=== PATIENT | male | born 1955 | race Caucasian/White ===

== ENCOUNTER 2019-10-17 07:08 | Outpatient (CLI) | payer MEDICAID, SELFPAY ==
[2019-10-17 07:50] VITALS: BMI 35.2
--- NOTE | 2019-10-17 07:51 | NMCV_ITS ---
NM james perf SPECT r/s* [id number] Michael Gutierrez Age: 64 Gender: M : 1955 Exam Date: 10/17/2019 08:31 Ordering Phys: Radha Posey LINE LEAD Technologist: JOSUE Harden Exam Location: [facility] Indications: SHORTNESS OF BREATH STRESS TEST Please see separate stress test report in [facility] for full findings IMAGE PROTOCOL Rest/Stress 1 Lexiscan Day Radiopharmaceutical Dose (mCi) Administration Site Administered by Rest: Tc-99m 10.4 IV JOSUE Harden Sestamibi Stress:Tc-99m 32.2 IV JOSUE Olson Sestamibi Rest: 17-Oct-2019 60 Discovery 630 Stress: 17-Oct-2019 30 Discovery 630 0.4mg Lexiscan. Supine position only as patient was unable to lay prone. SPECT RESULTS Technical Quality: Excellent Raw Data Analysis: Normal Image Corrections: No attenuation or motion correction applied Summed Stress Score: 7 Summed Rest Score: 8 Summed Difference Score: 0 PERFUSION FINDINGS Medium sized perfusion abnormality of mid to apical anteroseptal, mid to apical inferior and apical bautista on rest and supine stress images with slightly improved tracer uptake in septal wall. FUNCTIONAL RESULTS (calculated via Gated SPECT) Stress Image LV EF (%): 39 Stress EDV (mL):195 TID: 1.01 Stress ESV (mL):119 FUNCTIONAL FINDINGS: The left ventricle is normal in size. Transient Ischemia Dilatation of 1. There is moderately reduced left ventricular systolic function. The left ventricular ejection fraction is moderately reduced with a value of 39%. There is hypokinesis of mid to apical inferior and septal wall. Increased end-diastolic and end-systolic volumes. IMPRESSIONS 1. Medium sized perfusion abnormality of mid to apical anteroseptal, mid to apical inferior and apical bautista with slightly improved tracer uptake in septal wall. 2. This may represent old myocardial infarction/scarring or attenuation artifact in absence of prone imaging. 3. There is moderately reduced left ventricular systolic function. 4. There is hypokinesis of mid to apical inferior and septal wall. 5. No coronary ischemia based on the study. Miriam Sanders MD (Electronically Signed) Final Date: 17 Oct 2019 13:26 S
--- NOTE | 2019-10-17 07:51 | ECG_ITS ---
NAME OF STUDY: LEXISCAN SESTAMIBI STRESS TEST INDICATION: Chest Pain, PROCEDURE: At the baseline, the EKG revealed normal sinus rhythm with a nonspecific T wave changes in the high lateral leads. Nonspecific ST changes. The baseline blood pressure was 185/80 mm Hg with a heart rate of 75 beats/min. Lexiscan was infused over a period of 20 seconds. A total of 0.4 milligrams of Lexiscan was infused. The stress phase was continued for a total of 5 minutes. Heart rate at the end of the stress phase was 90 with a blood pressure 169/63. The EKG at the peak infusion revealed no significant changes. Sestamibi was injected 20 seconds after the Lexiscan infusion. Blood pressure at the end of the recovery phase was 177/77 with a heart rate of 86 per minute. CONCLUSION: 1. No significant EKG changes with the LexiScan infusion 2. No LexiScan induced chest pain or cardiac arrhythmia 3. Normal blood pressure and heart rate response 4. Sestamibi/sestamibi perfusion scan pending; see separate report. Electronically Signed On 10-17-2019 18:22:39 CDT by Naheed Rivers M.D. [email or web address]
[2019-10-17] MEDS: regadenoson 0.4 Mg/5 ml Syringe IVP (09:32)
[2019-10-17 09:35] VITALS: BP 151/63; PULSE 90
== END 2019-10-17 07:09 | disposition home or self-care (01) ==
PROVIDERS: Family Provider Internal Medicine; PCP Internal Medicine; Visit Provider Internal Medicine
DX: R06.09 Other forms of dyspnea (principal)
CPT/HCPCS: 78452; 93017; A9500; J2785

== ENCOUNTER 2020-09-05 19:34 | Emergency (ER) | payer MEDICAID, SELFPAY ==
[2020-09-05 19:44] VITALS: BP 178/128; PULSE 85; RESP 18; TEMP 36.3; O2SAT 96; BMI 33.3
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
[2020-09-05 19:50] VITALS: BP 164/98; PULSE 78; RESP 22; O2SAT 97
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
[2020-09-05 20:07] LABS: Basophils # 0.1 10^3/uL (0.0-0.1); Basophils % 0.9 %; Eosinophils # 0.1 10^3/uL (0.0-0.8); Eosinophils % 1.3 %; Hematocrit 47.7 % (42.0-52.0); Hemoglobin 15.9 g/dL (11.7-16.6); Lymphocytes # 3.5 10^3/uL (0.8-4.8); Lymphocytes % 38.2 %; Mean Corpuscular HGB Conc 33.3 g/dL (30.0-36.0); Mean Corpuscular Hemoglobin 29.5 pg (28.0-34.0); Mean Corpuscular Volume 88.5 fL (80-94); Mean Platelet Volume 9.4 fL (7.4-10.4); Monocytes # 0.8 10^3/uL (0.2-0.9); Monocytes % 8.8 %; Neutrophils # 4.61 10^3/uL (1.8-7.7); Neutrophils % 50.3 %; Nucleated Red Blood Cells % 0 %; Platelet Count 336 10^3/cmm (130-400); Red Blood Count 5.39 10^6/uL (4.1-5.3); Red Cell Distribution Width 12.3 % (12.1-15.1); White Blood Count 9.2 10^3/uL (4.0-10.0)
[2020-09-05] MEDS: iodixanol 320 mg/mL 100mL Btl IV (20:35)
[2020-09-05 20:54] LABS: Alanine Aminotransferase 19 U/L (0-41); Albumin Level 4.6 g/dL (3.5-5.2); Alkaline Phosphatase 86 IU/L (40-130); Aspartate Amino Transferase 14 U/L (0-40); Blood Urea Nitrogen 19 mg/dL (8-23); Calcium 9.3 mg/dL (8.5-10.5); Carbon Dioxide 24 mmol/L (22-29); Chloride 98 mmol/L (98-107); Globulin 3.1 g/dL (1.3-4.6); Glucose 409 mg/dL (65-115); Osmolality Calculated 302 mOsm/kg (285-295); Sodium 136 mmol/L (136-145); Total Bilirubin 0.4 mg/dL (0.15-1.2); Total Protein 7.7 g/dL (6.6-8.7)
[2020-09-05 20:55] LABS: Anion Gap 18.1 (5-19); Potassium 4.1 mmol/L (3.5-5.1)
[2020-09-05] MEDS: sodium chloride 0.9% 1,000 ML 999 ML IV (21:06)
[2020-09-05 21:07] VITALS: RESP 20; O2SAT 100
[2020-09-05] MEDS: ondansetron 2 mg/ML SDV 2 mL 4 MG IVP (21:07)
[2020-09-05] MEDS: morphine 4 mg/mL SDV 1 mL IVP (21:07)
[2020-09-05] MEDS: tetanus-dipt-pertussis 0.5 mL SDV IM (21:08)
[2020-09-05 21:45] VITALS: BP 150/65; PULSE 86; RESP 18; O2SAT 96
[2020-09-05 21:55] LABS: INR 0.96 (0.8-1.2)
== END 2020-09-05 21:47 | disposition home or self-care (01) ==
PROVIDERS: Emergency Provider Emergency Medicine; PCP Internal Medicine
DX: S20.212A Contusion of left front wall of thorax, initial encounter (principal); S40.812A Abrasion of left upper arm, initial encounter; Z79.82 Long term (current) use of aspirin; Z79.4 Long term (current) use of insulin; V03.90XA Pedestrian on foot injured in collision with car, pick-up truck or van, unspecified whether traffic or nontraffic accident, initial encounter; Z23 Encounter for immunization
CPT/HCPCS: 36415; 70450; 71045; 71260; 72125; 73030; 73590; 74177; 80053; 85025; 85610; 90471; 90715; 96374; 96375; 99285; J2270; J2405; J7030; Q9967

== ENCOUNTER 2020-11-08 10:37 | Emergency (ER) | payer MEDICAID, SELFPAY ==
[2020-11-08 11:01] VITALS: BP 150/67; PULSE 82; RESP 15; TEMP 36.8; O2SAT 96; BMI 34.9
--- NOTE | 2020-11-08 11:23 | XR_ITS ---
WS: [id number] Exam: XR shunt series Date/Time of Exam: 11/08/2020 11:28 AM Reason For Exam: brain tumor s/p shunt, persistent vomiting A right-sided CSF shunt catheter is in place. There was no sign of discontinuity or kinking of the ca theter. The catheter courses along the right neck, chest and abdomen and ends in the upper pelvis. Im ages of the chest abdomen pelvis demonstrate no acute finding. XR/XR shunt series IMPRESSION: 1. Intact right sided CSF shunt catheter. No complications noted.
--- NOTE | 2020-11-08 11:24 | ECG_ITS ---
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 Measurements Intervals Rentz Rate: 86 P: 45 NE: 186 QRS: -2 QRSD: 120 T: 115 QT: 384 QTc: 460 Interpretive Statements SINUS RHYTHM POSSIBLE LATERAL MYOCARDIAL INFARCTION , OF INDETERMINATE AGE [30 ms Q WAVE IN I/aVL/V5/V6] Compared to ECG 12/13/2018 21:33:41 Myocardial infarct finding now present First degree AV block no longer present T-wave abnormality no longer present Electronically Signed On 11-08-2020 15:40:52 CDT by Miriam Sanders M.D. [email or web address] STUDIOSkettering health – [id number]
--- NOTE | 2020-11-08 11:25 | CT_ITS ---
WS: [id number] CT HEAD NONCONTRAST HISTORY: Brain tumor, persistent vomiting, dizziness. TECHNIQUE: Contiguous axial imaging performed through the brain in 2.5 mm imaging. Bone and soft tiss ue windows. Sagittal and coronal reformats reviewed. All CT scans at [facility] use at le ast one of these dose optimization techniques: automated exposure control; mA and/or kV adjustment pe r patient size (includes targeted exams where dose is matched to clinical indication); or iterative r econstruction. DLP: 1116.43 mGy.cm COMPARISON: 09/05/2020 No acute intracranial hemorrhage, midline shift or mass effect. RIGHT parietal STOCK TRADER shunt catheter terminates beyond the LEFT lateral ventricle. Similar position as th e prior examination. Size of the ventricles remains stable. No progression of ventriculomegaly. No progression of atrophy or ischemic disease. Paranasal sinuses: As visualized are clear. Mastoid air cells: Well pneumatized. Calvarium and scalp: LEFT parietal thang hole. No fractures. CT/CT head wo con* [id number] IMPRESSION: 1. No acute intracranial hemorrhage or edema. 2. STOCK TRADER shunt catheter is unchanged in position. 3. No ventriculomegaly.
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
[2020-11-08 11:50] VITALS: BP 149/66; PULSE 88; RESP 18; O2SAT 98
[2020-11-08 11:54] LABS: Add Urine Microscopic? NO; Charge for UA Resulting for Rev
[2020-11-08 11:55] LABS: Basophils % 0.4 %; Eosinophils # 0.1 10^3/uL (0.0-0.8); Eosinophils % 0.6 %; Hemoglobin 13.9 g/dL (11.7-16.6); Lymphocytes # 1.7 10^3/uL (0.8-4.8); Mean Corpuscular HGB Conc 33.9 g/dL (30.0-36.0); Mean Corpuscular Volume 85.6 fL (80-94); Mean Platelet Volume 9.5 fL (7.4-10.4); Monocytes # 0.7 10^3/uL (0.2-0.9); Monocytes % 7.7 %; Neutrophils # 6.44 10^3/uL (1.8-7.7); Nucleated Red Blood Cells % 0 %; Platelet Count 278 10^3/cmm (130-400); Red Blood Count 4.79 10^6/uL (4.1-5.3); Red Cell Distribution Width 11.9 % (12.1-15.1)
[2020-11-08 12:05] LABS: Bilirubin Urine Neg (Negative); Blood Urine Neg (Negative); Glucose Urine UA 4+ (Normal); Ketones Urine 1+ (Negative); Leukocyte Esterase Urine Negative (Negative); Nitrate Urine Negative (Negative); Protein Urine Neg (Negative); Specific Gravity, Urine 1.015 (1.005-1.030); Urine Appearance Clear (CLEAR); Urine Color Yellow (Yellow); Urobilinogen Urine 1 mg/dL (Negative); pH Urine 5 (5-7)
[2020-11-08 12:16] LABS: Lactate (Lactic Acid level) 1.2 mmol/L (0.5-2.2)
[2020-11-08 12:20] LABS: Troponin(5th) Baseline 21 ng/L (0-15)
[2020-11-08 13:05] VITALS: BP 132/50; PULSE 83; RESP 22; O2SAT 97
--- NOTE | 2020-11-08 13:24 | ECG_ITS ---
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 Measurements Intervals [place] Rate: 77 P: 51 MI: 197 QRS: 9 QRSD: 118 T: 84 QT: 379 QTc: 431 Interpretive Statements SINUS RHYTHM MODERATE INTRAVENTRICULAR CONDUCTION DELAY [110+ ms QRS DURATION] NONSPECIFIC ST & T-WAVE ABNORMALITY Compared to ECG 11/08/2020 11:36:30 Intraventricular conduction delay now present T-wave abnormality now present Myocardial infarct finding no longer present Electronically Signed On 11-08-2020 18:32:52 CDT by Miriam Sanders M.D. [id number]
[2020-11-08 13:51] LABS: NT Pro B Type Natriuretic Pept 215 pg/mL (0-125); Procalcitonin 0.05 ng/mL (0-0.5)
[2020-11-08 14:00] VITALS: BP 162/77; PULSE 82; RESP 18; O2SAT 98
[2020-11-08 14:02] LABS: Alanine Aminotransferase 13 U/L (0-41); Albumin Level 3.5 g/dL (3.5-5.2); Alkaline Phosphatase 86 IU/L (40-130); Anion Gap 15.2 (5-19); Aspartate Amino Transferase 10 U/L (0-40); Blood Urea Nitrogen 17 mg/dL (8-23); C Reactive Protein 25.8 mg/L (0.0-4.9); Calcium 8.4 mg/dL (8.5-10.5); Carbon Dioxide 23 mmol/L (22-29); Chloride 99 mmol/L (98-107); Creatinine Clr Calc Pharmacy 148.7893; Glomerular Filtration Rate 113.5 mL/min (90-130); Glucose 287 mg/dL (65-115); Lipase 33 U/L (13-60); Magnesium 1.7 mg/dL (1.7-2.3); Osmolality Calculated 288 mOsm/kg (285-295); Potassium 4.2 mmol/L (3.5-5.1); Sodium 133 mmol/L (136-145); Total Bilirubin 0.3 mg/dL (0.15-1.2); Total Protein 6.5 g/dL (6.6-8.7)
[2020-11-08 14:11] LABS: Troponin 5 2HR 21.81 ng/L (0-15); Troponin 5 2HR Delta 0.81 ABS# (0-10)
[2020-11-08 14:33] VITALS: BP 162/77; PULSE 82; RESP 18; O2SAT 98
== END 2020-11-08 14:34 | disposition home or self-care (01) ==
PROVIDERS: Emergency Provider Family Medicine; PCP Internal Medicine
DX: R11.11 Vomiting without nausea (principal); R07.9 Chest pain, unspecified; Z79.82 Long term (current) use of aspirin; Z79.4 Long term (current) use of insulin
CPT/HCPCS: 36415; 70250; 70450; 71046; 72040; 74019; 80053; 81003; 83605; 83690; 83735; 83880; 84145; 84484; 85025; 86140; 93005; 99284

== ENCOUNTER 2021-06-17 09:52 | Outpatient (CLI) | payer MEDICARE, MEDICAID, SELFPAY ==
--- NOTE | 2021-06-17 09:58 | US_ITS ---
WS: [id number] TESTICULAR ULTRASOUND HISTORY: L TESTICULAR PAIN/L EPIDIDYMITIS COMPARISON: None available. TECHNIQUE: Real-time and color Doppler imaging or utilized to perform a testicular ultrasound. Right testicle: 5.6 cm x 3.9 cm x 2.7 cm. Normal size and echogenicity. No mass or torsion. Normal color Doppler is present throughout. Systolic and diastolic velocities are both present. No significant hydrocele. Right epididymis: Normal epididymis with no increased vascularity. Left testicle: 5.5 cm x 3.4 cm x 2.5 cm. Normal size and echogenicity. No mass or torsion. Normal color Doppler is present throughout. Systolic and diastolic velocities are both present. No significant hydrocele. Left epididymis: Markedly thickened edematous heterogeneous LEFT epididymis. This corresponds to the palpable abnormality. Mildly prominent LEFT varicocele. No significant varicocele at this time. US/US scrotum [id number] IMPRESSION: 1. No testicular mass or torsion. 2. Mild acute LEFT epididymitis.
== END 2021-06-17 09:53 | disposition home or self-care (01) ==
LOC: RAD 09:56
PROVIDERS: PCP Internal Medicine; Visit Provider Nurse Practitioner Family
DX: N50.812 Left testicular pain (principal); N45.1 Epididymitis
CPT/HCPCS: 76870

== ENCOUNTER 2021-06-22 16:47 | Emergency (ER) | payer MEDICARE, MEDICAID, SELFPAY ==
--- NOTE | 2021-06-22 16:58 | USR_ITS ---
PROCEDURE INFORMATION: Exam: US Scrotum Exam date and time: 06/22/2021 4:58 PM Age: 66 years old Clinical indication: Swelling, testicles or scrotum; Scrotum pain; Additional info: L testicle TECHNIQUE: Imaging protocol: Real-time ultrasound of the scrotum and contents with color Doppler and image documentation. COMPARISON: US scrotum [id number] 06/17/2021 10:07 AM FINDINGS: Right testicle: Normal. No mass. No torsion. Normal vascular flow. Left testicle: Normal. No mass. No torsion. Normal vascular flow. There is an isoechoic to hypoechoic lesion inferior to the left testicle measuring 1.7 x 2.0 cm. No definite internal vascularity is seen. There is posterior acoustic shadowing. Epididymides: There is a 7 mm x 4 mm left epididymal head cyst. Scrotum: Left scrotal wall is thickened and hypervascular in relation to the right. There is a heterogeneous, predominantly hypoechoic lesion within the scrotal wall measuring 2.9 x 1.5 x 1.4 cm with some internal vascularity. US/US scrotum [id number] IMPRESSION: 1. There is a 1.7 x 2.0 cm lesion inferior to the left testicle with posterior acoustic shadowing and no definite internal vascularity. 2. There is a 2.9 cm hypoechoic lesion within the scrotal wall with internal vascularity. 3. Left scrotal wall is thickened and hypervascular in relation to the right. This can be seen with acute idiopathic scrotal edema. Differential includes cellulitis.
[2021-06-22 17:11] VITALS: BP 164/81; PULSE 80; RESP 14; TEMP 36.3; O2SAT 96; BMI 34.7
--- NOTE | 2021-06-22 17:34 | ED_ITS ---
Documented by User: TRISTA Barone 06/22/21 20:45 HPI - Male Genitourinary General: Chief complaint: Urogenital-Male Stated complaint: LEFT TESTICLE SWOLLEN Time Seen by Provider: 06/22/21 17:25 Source: patient Mode of arrival: ambulatory Limitations: no limitations History of Present Illness: HPI Narrative: Patient is a 66-year-old male here for evaluation of left testicular pain, swelling, redness. Patient states he initially began having symptoms about 3 weeks ago. He states he has been on cephalexin antibiotics for 3 weeks and also received IM antibiotics but symptoms continue to worsen. Patient had a US scrotum on . Results are as follows: US/US scrotum 23703 IMPRESSION: 1. No testicular mass or torsion. 2. Mild acute LEFT epididymitis. Patient states since that ultrasound his left testicle has increased in size and states it now looks like a baseball . He is having significant discomfort with ambulation/walking. Patient states he is not sexually active and has not been in over 14 years. Denies dysuria or trouble urinating. Patient is a diabetic. MD Complaint: testicle pain and testicle swelling Onset (ago): day(s) Duration: constant Location: left testicle Severity scale (1-10): 10 Relieving factors: none Exacerbating factors: palpation and movement Associated symptoms: Reports no associated symptoms and nausea; Deny vomiting Related Data: Sexually active: No Review of Systems Const: Denies: fever(s), chills, body aches, fatigue or malaise Card: Denies: chest pain Resp: Denies: dyspnea GI: Reports: nausea; Denies: abdominal pain, vomiting or diarrhea : Reports: testicular pain, testicular mass and scrotal swelling; Denies: flank pain, difficulty urinating, urinary frequency, urinary urgency, genital lesions or penile discharge Musc: Denies: neck pain or back pain Skin/Breast: Denies: rash Physical Exam Const: COMMON NORMALS: patient oriented x3, no limitations and alert GENERAL APPEARANCE: cooperative NUTRITIONAL APPEARANCE: overweight ORIENTATION/CONSCIOUSNESS: Yes awake, Yes oriented to person, Yes oriented to place and Yes oriented to time HENMT: COMMON NORMALS: normocephalic and atraumatic HEAD & SCALP: normocephalic and atraumatic Resp: COMMON NORMALS: normal respiratory effort and clear to auscultation bilaterally AUSCULTATION: clear to auscultation bilaterally Cardio: COMMON NORMALS: regular rate and regular rhythm RATE: regular rate RHYTHM: regular rhythm : PENIS: normal penis MEATUS: meatus normal SCROTUM: Yes testes descended bilaterally and Yes scrotal swelling (see below) Scrotal swelling laterality: left TESTES: Yes testicular lie normal OTHER: pt has significant swelling, erythema, warmth to L scrotum; there appears to be a fluctuant area to L interior scrotal wall that is concerning for abscess Neuro: COMMON NORMALS: patient oriented x3 SENSORIUM/ORIENTATION: Yes alert, Yes oriented to person, Yes oriented to place and Yes oriented to time Procedures Abscess I/D Site: scrotum Side (if applicable): left Local Anesthetic: lidocaine 1% and with epi Amount of anesthesia used (mL): 6.0 Technique: incised with #11 blade Amount of fluid expressed (mL): 8 Irrigation: No Packing used?: plain Course Consultations: Consultation #1: Dr. Valerio-agrees with plan to drain abscess, switch abx, and will follow up in office Vital Signs: Vital signs: Vital Signs Temperature 97.4 F L 06/22/21 17:11 Pulse Rate 80 06/22/21 17:11 Respiratory Rate 14 06/22/21 17:11 Blood Pressure 164/81 06/22/21 17:11 Pulse Oximetry 96 06/22/21 17:11 MDM - Male MDM Narrative: Medical decision making narrative: I spoke with radiologist in regards to US findings. She does not believe the lesion represents an abscess however clinically this is a scrotal wall abscess. Dr. Morrissey also evaluated patient and agrees. We spoke to Dr. Valerio who agreed with plan for incision and drainage, packing, and will follow up in office. Abscess was drained and pa cked with a large amount of purulent material expressed. Culture obtained. Will place on Levaquin and Doxycycline. Patient is a diabetic. Sugars today were approximately 350. He states he has not been taking his insulin as he is having some issues with pharmacy filling it (patient refuses to take the insulin pens and wants a vial however pharmacy is stating his insurance will not cover it). I will rewrite patient prescriptions for his insulin that he can try to fill at [facility] pharmacy in hopes that maybe they can fill. Patient is not tachycardic or febrile. He has a normal white count. Chemistry showing hyponatremia but this was thought to be pseudohyponatremia secondary to his hyperglycemia. Will place information with case management to get him set up with Dr. Valerio for follow-up. Lab Data: Labs: Lab Results 06/22/21 06/22/21 06/22/21 18:25 18:34 18:34 WBC 9.5 10^3/uL 10^3/ uL (4.0-10.0) RBC 4.77 10^6/uL 10^6 /uL (4.1-5.3) Hgb 13.6 g/dL g/dL (11.7-16.6) Hct 40.5 % L % (42.0-52.0) MCV 84.9 fl fl (80-94) MCH 28.5 pg pg (28.0-34.0) MCHC 33.6 g/dL g/dL (30.0-36.0) RDW 12.3 % % (12.1-15.1) Plt Count 327 10^3/cmm 10^3 /cmm (130-400) MPV 9.1 fL fL (7.4-10.4) Neut % (Auto) 60.3 % % Lymph % (Auto) 26.8 % % [place] % (Auto) 10.6 % % Eos % (Auto) 1.5 % % Baso % (Auto) 0.5 % % Neut # (Auto) 5.70 10^3/uL 10^3 /uL (1.8-7.7) Lymph # (Auto) 2.5 10^3/uL 10^3/ uL (0.8-4.8) [place] # (Auto) 1.0 10^3/uL H 10^ 3/uL (0.2-0.9) Eos # (Auto) 0.1 10^3/uL 10^3/ uL (0.0-0.8) Baso # (Auto) 0.1 10^3/uL 10^3/ uL (0.0-0.1) Nucleated RBC % (a uto) 0 % % Nucleated RBCs # 0.0 /100WBC /100W BC Sodium 120 mmol/L L mmol /L (136-145) Potassium 4.5 mmol/L mmol/L (3.5-5.1) Chloride 87 mmol/L L mmol/ L (98-107) Carbon Dioxide 17 mmol/L L mmol/ L (22-29) Anion Gap 20.5 H (5-19) BUN 17 mg/dL mg/dL (8-23) Creatinine 0.8 mg/dL mg/dL (0.7-1.2) GFR Calculation 97.0 mL/min mL/mi n (90-130) Glucose 340 mg/dL H mg/dL (65-115) Calculated Osmolal ity 265 mOsm/kg L mOs m/kg (285-295) Calcium 9.4 mg/dL mg/dL (8.5-10.5) Total Bilirubin 0.2 mg/dL mg/dL (0.15-1.2) AST 16 U/L U/L (0-40) ALT 16 U/L U/L (0-41) Alkaline Phosphata se 85 IU/L IU/L (40-130) C-Reactive Protein 48.2 mg/L H mg/L (0.0-4.9) Total Protein 7.1 g/dL g/dL (6.6-8.7) Albumin 3.8 g/dL g/dL (3.5-5.2) Globulin 3.3 g/dL g/dL (1.3-4.6) Urine Color Yellow (Yellow) Urine Appearance Clear (CLEAR) Urine pH 5 (5-7) Ur Specific Gravit y 1.010 (1.005-1.030) Urine Protein Neg (Negative) Urine Glucose (UA) 4+ H (Normal) Urine Ketones 1+ H (Negative) Urine Blood Neg (Negative) Urine Nitrate Negative (Negative) Urine Bilirubin Neg (Negative) Urine Urobilinogen Norm mg/dL mg/dL (Negative) Ur Leukocyte Carmita ase Negative (Negative) Imaging Data: US scrotum: Radiologist's impression: [address] [id number] ReportSigned with Addenda Patient: Bhupendra Gutierrez #: [id number]: 6Acct#:[id number]/Sex: 66 / MADM Date: 06/22/21Loc: ERRoom/Bed:Attending Dr: Ordering Provider/Ordering MD: Angy Vila MD Date of Service: 06/22/21 Procedure(s): US scrotum [id number] Accession Number(s): [id number] Report Number: [id number] ADDENDUM US/US scrotum [id number] Findings were discussed with the patient's provider at the time of this addendum. Addendum Dictated By: Emani Myers MDAddendum Signed By: Emani Myers MDSigned Date/Time:06/22/21 1900Addendum Cosigned By: PROCEDURE INFORMATION: Exam: US Scrotum Exam date and time: 06/22/2021 4:58 PM Age: 66 years old Clinical indication: Swelling, testicles or scrotum; Scrotum pain; Additional info: L testicle TECHNIQUE: Imaging protocol: Real-time ultrasound of the scrotum and contents with color Doppler and image documentation. COMPARISON: US scrotum [id number] 06/17/2021 10:07 AM FINDINGS: Right testicle: Normal. No mass. No torsion. Normal vascular flow. Left testicle: Normal. No mass. No torsion. Normal vascular flow. There is an isoechoic to hypoechoic lesion inferior to the left testicle measuring 1.7 x 2.0 cm. No definite internal vascularity is seen. There is posterior acoustic shadowing. Epididymides: There is a 7 mm x 4 mm left epididymal head cyst. Scrotum: Left scrotal wall is thickened and hypervascular in relation to the right. There is a heterogeneous, predominantly hypoechoic lesion within the scrotal wall measuring 2.9 x 1.5 x 1.4 cm with some internal vascularity. US/US scrotum [id number] IMPRESSION: 1. There is a 1.7 x 2.0 cm lesion inferior to the left testicle with posterior acoustic shadowing and no definite internal vascularity. 2. There is a 2.9 cm hypoechoic lesion within the scrotal wall with internal vascularity. 3. Left scrotal wall is thickened and hypervascular in relation to the right. This can be seen with acute idiopathic scrotal edema. Differential includes cellulitis. Dictated By:Emani Myers MDSigned By:Emani Myers MDSigned Date/Time:06/22/21 1843DD/ 1658 Discharge Plan Discharge Patient Disposition: Home Clinical Impression: Abscess of scrotal wall Condition: Stable Prescriptions: New hydrocodone-acetaminophen 5-325 mg tablet 1 tab PO Q4H PRN (Reason: pain) Qty: 20 RF: 0 doxycycline monohydrate 100 mg capsule 100 mg PO Q12H 10 Days Qty: 20 RF: 0 levofloxacin 500 mg tablet 500 mg PO DAILY 10 Days Qty: 7 RF: 0 Lantus U-100 Insulin 100 unit/mL solution 50 unit SUBCUT BID Qty: 10 RF: 0 Humalog U-100 Insulin 100 unit/mL cartridge 15 unit SUBCUT TID Qty: 3 RF: 0 No Action multivitamin Tablet 1 tab PO DAILY RF: 0 ondansetron 4 mg tablet,disintegrating 4 mg PO Q8H PRN (Reason: nausea and vomiting) Qty: 20 RF: 0 clonidine HCl 0.1 mg tablet See Rx Instructions .ROUTE .COMPLEX RF: 0 venlafaxine 75 mg capsule,extended release 24hr 75 mg PO DAILY@0600 RF: 0 Lantus U-100 Insulin 100 unit/mL solution 50 unit SUBCUT BID@0600,1700 RF: 0 pravastatin 40 mg tablet 40 mg PO DAILY@17 RF: 0 amlodipine 5 mg tablet 5 mg PO DAILY@0600 RF: 0 aspirin 81 mg tablet,delayed release (DR/EC) 81 mg PO DAILY@0600 RF: 0 levothyroxine 100 mcg tablet 100 mcg PO DAILY@0600 RF: 0 tamsulosin 0.4 mg capsule 0.4 mg PO BID@0600,1700 RF: 0 levetiracetam 750 mg tablet 750 mg PO BID@0600,1700 RF: 0 insulin lispro [Humalog U-100 Insulin] 100 unit/mL solution 6 unit SUBCUT BID@0600,1700 RF: 0 lisinopril 40 mg tablet 40 mg PO DAILY@0600 RF: 0 metformin 500 mg tablet extended release 24 hr 500 mg PO BID@0600,1700 RF: 0 aripiprazole 2 mg tablet 2 mg PO BEDTIME@1700 RF: 0 Discharge Orders: Discharge ED (Routine); Ordered 06/22/21 Ordered By: Marthamauricio Painter Referrals: Elaine Sutton MD [Primary Care Provider] - Sreekanth Valerio MD [Physician] - Coding Level of Care Code ED Cardiology Coordinator for Chg Fwd Exam Detailed Documented by User: Jose Ramon Morrissey DO 06/22/21 21:59 HPI - Male Genitourinary General: Chief complaint: Urogenital-Male Stated complaint: LEFT TESTICLE SWOLLEN Time Seen by Provider: 06/22/21 17:25 Course Vital Signs: Vital signs: Vital Signs Temperature 97.4 F L 06/22/21 17:11 Pulse Rate 80 06/22/21 17:11 Respiratory Rate 14 06/22/21 17:11 Blood Pressure 164/81 06/22/21 17:11 Pulse Oximetry 96 06/22/21 17:11 MDM - Male MDM Narrative: Medical decision making narrative: This patient was originally seen by Mrs. Painter?RADHA Qureshi. I agree with her history, evaluation, and treatment. Lab Data: Labs: Lab Results 06/22/21 06/22/21 06/22/21 18:25 18:34 18:34 WBC 9.5 10^3/uL 10^3/ uL (4.0-10.0) RBC 4.77 10^6/uL 10^6 /uL (4.1-5.3) Hgb 13.6 g/dL g/dL (11.7-16.6) Hct 40.5 % L % (42.0-52.0) MCV 84.9 fl fl (80-94) MCH 28.5 pg pg (28.0-34.0) MCHC 33.6 g/dL g/dL (30.0-36.0) RDW 12.3 % % (12.1-15.1) Plt Count 327 10^3/cmm 10^3 /cmm (130-400) MPV 9.1 fL fL (7.4-10.4) Neut % (Auto) 60.3 % % Lymph % (Auto) 26.8 % % [place] % (Auto) 10.6 % % Eos % (Auto) 1.5 % % Baso % (Auto) 0.5 % % Neut # (Auto) 5.70 10^3/uL 10^3 /uL (1.8-7.7) Lymph # (Auto) 2.5 10^3/uL 10^3/ uL (0.8-4.8) [place] # (Auto) 1.0 10^3/uL H 10^ 3/uL (0.2-0.9) Eos # (Auto) 0.1 10^3/uL 10^3/ uL (0.0-0.8) Baso # (Auto) 0.1 10^3/uL 10^3/ uL (0.0-0.1) Nucleated RBC % (a uto) 0 % % Nucleated RBCs # 0.0 /100WBC /100W BC Sodium 120 mmol/L L mmol /L (136-145) Potassium 4.5 mmol/L mmol/L (3.5-5.1) Chloride 87 mmol/L L mmol/ L (98-107) Carbon Dioxide 17 mmol/L L mmol/ L (22-29) Anion Gap 20.5 H (5-19) BUN 17 mg/dL mg/dL (8-23) Creatinine 0.8 mg/dL mg/dL (0.7-1.2) GFR Calculation 97.0 mL/min mL/mi n (90-130) Glucose 340 mg/dL H mg/dL (65-115) Calculated Osmolal ity 265 mOsm/kg L mOs m/kg (285-295) Calcium 9.4 mg/dL mg/dL (8.5-10.5) Total Bilirubin 0.2 mg/dL mg/dL (0.15-1.2) AST 16 U/L U/L (0-40) ALT 16 U/L U/L (0-41) Alkaline Phosphata se 85 IU/L IU/L (40-130) C-Reactive Protein 48.2 mg/L H mg/L (0.0-4.9) Total Protein 7.1 g/dL g/dL (6.6-8.7) Albumin 3.8 g/dL g/dL (3.5-5.2) Globulin 3.3 g/dL g/dL (1.3-4.6) Urine Color Yellow (Yellow) Urine Appearance Clear (CLEAR) Urine pH 5 (5-7) Ur Specific Gravit y 1.010 (1.005-1.030) Urine Protein Neg (Negative) Urine Glucose (UA) 4+ H (Normal) Urine Ketones 1+ H (Negative) Urine Blood Neg (Negative) Urine Nitrate Negative (Negative) Urine Bilirubin Neg (Negative) Urine Urobilinogen Norm mg/dL mg/dL (Negative) Ur Leukocyte Carmita ase Negative (Negative) Discharge Plan Discharge Patient Disposition: Home Clinical Impression: Abscess of scrotal wall Condition: Stable Prescriptions: New hydrocodone-acetaminophen 5-325 mg tablet 1 tab PO Q4H PRN (Reason: pain) Qty: 20 RF: 0 doxycycline monohydrate 100 mg capsule 100 mg PO Q12H 10 Days Qty: 20 RF: 0 levofloxacin 500 mg tablet 500 mg PO DAILY 10 Days Qty: 7 RF: 0 Lantus U-100 Insulin 100 unit/mL solution 50 unit SUBCUT BID Qty: 10 RF: 0 Humalog U-100 Insulin 100 unit/mL cartridge 15 unit SUBCUT TID Qty: 3 RF: 0 No Action multivitamin Tablet 1 tab PO DAILY RF: 0 ondansetron 4 mg tablet,disintegrating 4 mg PO Q8H PRN (Reason: nausea and vomiting) Qty: 20 RF: 0 clonidine HCl 0.1 mg tablet See Rx Instructions .ROUTE .COMPLEX RF: 0 venlafaxine 75 mg capsule,extended release 24hr 75 mg PO DAILY@0600 RF: 0 Lantus U-100 Insulin 100 unit/mL solution 50 unit SUBCUT BID@0600,1700 RF: 0 pravastatin 40 mg tablet 40 mg PO DAILY@17 RF: 0 amlodipine 5 mg tablet 5 mg PO DAILY@0600 RF: 0 aspirin 81 mg tablet,delayed release (DR/EC) 81 mg PO DAILY@0600 RF: 0 levothyroxine 100 mcg tablet 100 mcg PO DAILY@0600 RF: 0 tamsulosin 0.4 mg capsule 0.4 mg PO BID@0600,1700 RF: 0 levetiracetam 750 mg tablet 750 mg PO BID@0600,1700 RF: 0 insulin lispro [Humalog U-100 Insulin] 100 unit/mL solution 6 unit SUBCUT BID@0600,1700 RF: 0 lisinopril 40 mg tablet 40 mg PO DAILY@0600 RF: 0 metformin 500 mg tablet extended release 24 hr 500 mg PO BID@0600,1700 RF: 0 aripiprazole 2 mg tablet 2 mg PO BEDTIME@1700 RF: 0 Discharge Orders: Discharge ED (Routine); Ordered 06/22/21 Ordered By: Martha Painter Referrals: Elaine Sutton MD [Primary Care Provider] - Sreekatnh Valerio MD [Physician] - Coding Level of Care Code ED Cardiology Coordinator for Chg Fwd Exam Detailed
[2021-06-22 18:45] LABS: Basophils # 0.1 10^3/uL (0.0-0.1); Basophils % 0.5 %; Eosinophils # 0.1 10^3/uL (0.0-0.8); Eosinophils % 1.5 %; Hematocrit 40.5 % (42.0-52.0); Hemoglobin 13.6 g/dL (11.7-16.6); Lymphocytes # 2.5 10^3/uL (0.8-4.8); Lymphocytes % 26.8 %; Mean Corpuscular HGB Conc 33.6 g/dL (30.0-36.0); Mean Corpuscular Hemoglobin 28.5 pg (28.0-34.0); Mean Corpuscular Volume 84.9 fl (80-94); Mean Platelet Volume 9.1 fL (7.4-10.4); Monocytes % 10.6 %; Neutrophils % 60.3 %; Nucleated Red Blood Cells % 0 %; Platelet Count 327 10^3/cmm (130-400); Red Blood Count 4.77 10^6/uL (4.1-5.3); Red Cell Distribution Width 12.3 % (12.1-15.1); White Blood Count 9.5 10^3/uL (4.0-10.0)
[2021-06-22] MEDS: levofloxacin-dextrose 5 % 500 MG/100 ML PREMIX 100 MG IV (19:10)
[2021-06-22 19:11] LABS: Alanine Aminotransferase 16 U/L (0-41); Albumin Level 3.8 g/dL (3.5-5.2); Alkaline Phosphatase 85 IU/L (40-130); Blood Urea Nitrogen 17 mg/dL (8-23); C Reactive Protein 48.2 mg/L (0.0-4.9); Calcium 9.4 mg/dL (8.5-10.5); Carbon Dioxide 17 mmol/L (22-29); Chloride 87 mmol/L (98-107); Globulin 3.3 g/dL (1.3-4.6); Glucose 340 mg/dL (65-115); Osmolality Calculated 265 mOsm/kg (285-295); Sodium 120 mmol/L (136-145); Total Bilirubin 0.2 mg/dL (0.15-1.2); Total Protein 7.1 g/dL (6.6-8.7)
[2021-06-22 19:18] LABS: Anion Gap 20.5 (5-19); Aspartate Amino Transferase 16 U/L (0-40); Potassium 4.5 mmol/L (3.5-5.1)
[2021-06-22 19:34] LABS: Add Urine Microscopic? NO; Charge for UA Resulting for Rev
[2021-06-22 19:45] LABS: Urine Appearance Clear (CLEAR); Urine Color Yellow (Yellow); pH Urine 5 (5-7)
[2021-06-22 19:46] LABS: Bilirubin Urine Neg (Negative); Blood Urine Neg (Negative); Glucose Urine UA 4+ (Normal); Ketones Urine 1+ (Negative); Leukocyte Esterase Urine Negative (Negative); Nitrate Urine Negative (Negative); Protein Urine Neg (Negative); Urobilinogen Urine Norm (Negative)
[2021-06-22] MEDS: doxycycline 100 mg Tablet PO (20:19)
[2021-06-22] MEDS: morphine 4 mg/mL SDV 1 mL IVP (20:23)
[2021-06-22] MEDS: ondansetron 2 mg/ML SDV 2 mL 4 MG IVP (20:24)
[2021-06-22] MEDS: HYDROcodone-acetaminophen 5-325 mg Tablet 2 TAB PO (20:45)
--- NOTE | 2021-06-23 15:57 | DCPLANNER ---
funeral location manager had message to schedule a followup appointment for patient with Dr. Valerio. funeral location manager emailed patients information to Clinton Powers and Jannet at the office of Dr. Valerio. Patients information will be printed and reviewed. Clinic will call patient with appointment information.
--- NOTE | 2021-06-26 07:18 | DCPLANNER ---
Addendum entered by Althea Low 07/12/21 15:52: Patient had a follow up appointment scheduled with Dr. Valerio 06.26.21 - patient did attend appointment. Original Note: Patient has a follow up appointment scheduled for Saturday, June 26, 2021 at 2:[address] Valerio. Clinic will call patient with appointment information.
== END 2021-06-22 20:50 | disposition home or self-care (01) ==
PROVIDERS: Emergency Provider Physician Assistant; PCP Internal Medicine
DX: N49.2 Inflammatory disorders of scrotum (principal); E11.65 Type 2 diabetes mellitus with hyperglycemia; Z79.4 Long term (current) use of insulin; Z91.14 Patient's other noncompliance with medication regimen
CPT/HCPCS: 55100; 76870; 80053; 81003; 85025; 86140; 87070; 87075; 87205; 96365; 96375; 99283; J1956; J2270; J2405

== ENCOUNTER → 2021-06-26 13:10 | Outpatient (BNVA) | payer MEDICARE, MEDICAID, SELFPAY | PROVIDERS: PCP Internal Medicine; Visit Provider Urology | DX: N49.2 Inflammatory disorders of scrotum (principal); Z86.011 Personal history of benign neoplasm of the brain; Z95.5 Presence of coronary angioplasty implant and graft | CPT/HCPCS: 81003 ==

== ENCOUNTER → 2021-07-22 16:08 | Outpatient (BNVA) | payer MEDICARE, MEDICAID, SELFPAY | PROVIDERS: PCP Internal Medicine; Visit Provider Urology | DX: N49.2 Inflammatory disorders of scrotum (principal); R35.89 Other polyuria; E11.65 Type 2 diabetes mellitus with hyperglycemia | CPT/HCPCS: 81003 ==

== ENCOUNTER 2021-09-16 14:32 | Outpatient (CLI) | payer MEDICARE, MEDICAID, SELFPAY ==
--- NOTE | 2021-09-16 14:44 | XR_ITS ---
WS: [email or web address] XR hip LT 2-3V wo/w pel* [id number] REASON FOR EXAM: PAIN IN L HIP FINDINGS: No fracture of the left hip. Mild narrowing of the inferior hip joint space. There is moderate subchondral sclerosis and cystic change in the subarticular acetabulum with margina l osteophyte formation. Degenerative change noted in the left sacroiliac joint. Greater and lesser trochanters are intact. Femoral shaft from the trochanteric region to the knee is intact. No soft tissue abnormality. 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 No acute abnormality.
--- NOTE | 2021-09-16 14:44 | XR_ITS ---
WS: [email or web address] XR femur LT min 2V* [id number] REASON FOR EXAM: PAIN IN L LEG FINDINGS: No fracture of the left femur from the hip joint to the knee. No radiopaque foreign body in the soft tissues. XR/XR femur LT min 2V* [id number] IMPRESSION: No acute abnormality.
== END 2021-09-16 14:33 | disposition home or self-care (01) ==
PROVIDERS: PCP Internal Medicine; Visit Provider Internal Medicine
DX: M79.605 Pain in left leg (principal); M16.12 Unilateral primary osteoarthritis, left hip
CPT/HCPCS: 73502; 73552

== ENCOUNTER → 2021-09-26 15:06 | Outpatient (BNVA) | payer MEDICARE, MEDICAID, SELFPAY | PROVIDERS: PCP Internal Medicine; Visit Provider Nurse Practitioner | DX: E11.65 Type 2 diabetes mellitus with hyperglycemia (principal); Z79.4 Long term (current) use of insulin; E03.8 Other specified hypothyroidism; E55.9 Vitamin D deficiency, unspecified; M54.50 Low back pain, unspecified | CPT/HCPCS: 80053; 80061; 81000; 82306; 82607; 83036; 84443; 85025 ==

== ENCOUNTER 2021-09-28 10:01 | Outpatient (CLI) | payer MEDICARE, MEDICAID, SELFPAY ==
--- NOTE | 2021-09-28 10:10 | XRR_ITS ---
PROCEDURE INFORMATION: Exam: XR Thoracic Spine Exam date and time: 09/28/2021 10:10 AM Age: 66 years old Clinical indication: Pain in thoracic spine; Additional info: M54.50 - low back pain, unspecified TECHNIQUE: Imaging protocol: XR of the thoracic spine. Views: 3 views. COMPARISON: CT chest abd pel w con* 09/05/2020 8:47 PM FINDINGS: Bones/joints: Irau-wk-vgoifhog degenerative disc disease. No listhesis. No fracture. Osteopenia. Soft tissues: Unremarkable. Other findings: Extensive lateral spurring is noted. There is extensive anterior spurring. XR/XR thoracic spine 3V* [id number] IMPRESSION: Arthritis.
--- NOTE | 2021-09-28 10:10 | XRR_ITS ---
PROCEDURE INFORMATION: Exam: XR Lumbosacral Spine Exam date and time: 09/28/2021 10:10 AM Age: 66 years old Clinical indication: Low back pain; Patient HX: Lower back pain radiating down left leg to foot; Additional info: M54.50 - low back pain, unspecified TECHNIQUE: Imaging protocol: XR of the lumbosacral spine. Views: 2 or 3 views. COMPARISON: CR XR hip LT 2-3V wo/w pel* [id number] 09/16/2021 3:14 PM FINDINGS: Bones/joints: Spurring is seen more severe to the right. Anterior spurring is seen. There is moderate degenerative disc disease and severe degenerative joint disease at L5/S1. There is no fracture. There is no listhesis. Soft tissues: Unremarkable. XR/XR lumbar spine 2-3V* [id number] IMPRESSION: Arthritic changes.
== END 2021-09-28 10:02 | disposition home or self-care (01) ==
PROVIDERS: PCP Nurse Practitioner; Visit Provider Nurse Practitioner
DX: M47.894 Other spondylosis, thoracic region (principal); M47.897 Other spondylosis, lumbosacral region; M54.50 Low back pain, unspecified; M54.6 Pain in thoracic spine
CPT/HCPCS: 72072; 72100

== ENCOUNTER → 2022-01-09 11:25 | Outpatient (BNVA) | payer MEDICARE, MEDICAID, SELFPAY | PROVIDERS: PCP Nurse Practitioner; Visit Provider Nurse Practitioner | DX: F41.8 Other specified anxiety disorders (principal); R39.11 Hesitancy of micturition; M51.36 Other intervertebral disc degeneration, lumbar region; E11.65 Type 2 diabetes mellitus with hyperglycemia; Z79.4 Long term (current) use of insulin; E03.8 Other specified hypothyroidism; I10 Essential (primary) hypertension; Z87.898 Personal history of other specified conditions | CPT/HCPCS: 80053; 80061; 83036; 84443 ==

== ENCOUNTER → 2022-04-14 08:52 | Outpatient (BNVA) | payer MEDICARE, MEDICAID, SELFPAY | PROVIDERS: PCP Nurse Practitioner; Visit Provider Nurse Practitioner | DX: E11.65 Type 2 diabetes mellitus with hyperglycemia (principal); Z79.4 Long term (current) use of insulin; Z23 Encounter for immunization; B37.9 Candidiasis, unspecified; I10 Essential (primary) hypertension; E03.8 Other specified hypothyroidism; Z87.898 Personal history of other specified conditions; R39.11 Hesitancy of micturition; M51.36 Other intervertebral disc degeneration, lumbar region; G47.00 Insomnia, unspecified; F41.8 Other specified anxiety disorders | CPT/HCPCS: 80053; 81000; 82043; 83036 ==

== ENCOUNTER → 2022-06-04 13:08 | Outpatient (BNVA) | payer MEDICARE, MEDICAID, SELFPAY | PROVIDERS: PCP Nurse Practitioner; Visit Provider Thoracic Surgery (Cardiothoracic Vascular Surgery) | DX: E11.621 Type 2 diabetes mellitus with foot ulcer (principal); L97.512 Non-pressure chronic ulcer of other part of right foot with fat layer exposed | CPT/HCPCS: 99212 ==

== ENCOUNTER → 2022-06-10 14:42 | Outpatient (BNVA) | payer MEDICARE, MEDICAID, SELFPAY | PROVIDERS: PCP Nurse Practitioner; Visit Provider Surgery | DX: I96 Gangrene, not elsewhere classified (principal); E11.621 Type 2 diabetes mellitus with foot ulcer; L97.521 Non-pressure chronic ulcer of other part of left foot limited to breakdown of skin | CPT/HCPCS: 97597; A6446 ==

== ENCOUNTER 2022-06-18 14:44 | Outpatient (CLI) | payer MEDICARE, MEDICAID, SELFPAY ==
--- NOTE | 2022-06-18 14:48 | XR_ITS ---
WS: [email or web address] Left foot, 3 views, 06/18/2022 Clinical Data: diabetic foot ulcer/rule out osteomyelitis Comparison: None. Findings: No fractures or dislocations are seen. No bone destruction or erosion is noted. The joint spaces and soft tissues are normal. No osteomyelitis is seen. There is a plantar spur and an Achilles spur. XR/XR foot LT min 3V* [id number] Impression: Negative left foot.
== END 2022-06-18 14:45 | disposition home or self-care (01) ==
PROVIDERS: PCP Nurse Practitioner; Visit Provider Thoracic Surgery (Cardiothoracic Vascular Surgery)
DX: E11.621 Type 2 diabetes mellitus with foot ulcer (principal); L97.521 Non-pressure chronic ulcer of other part of left foot limited to breakdown of skin; I96 Gangrene, not elsewhere classified
CPT/HCPCS: 11042; 73630; 97597

== ENCOUNTER → 2022-06-25 14:07 | Outpatient (BNVA) | payer MEDICARE, MEDICAID, SELFPAY | PROVIDERS: PCP Nurse Practitioner; Visit Provider Thoracic Surgery (Cardiothoracic Vascular Surgery) | DX: I96 Gangrene, not elsewhere classified (principal); E11.621 Type 2 diabetes mellitus with foot ulcer; L97.521 Non-pressure chronic ulcer of other part of left foot limited to breakdown of skin | CPT/HCPCS: 11042; 97597 ==

== ENCOUNTER → 2022-07-02 10:19 | Outpatient (BNVA) | payer MEDICARE, MEDICAID, SELFPAY | PROVIDERS: PCP Nurse Practitioner; Visit Provider Thoracic Surgery (Cardiothoracic Vascular Surgery) | DX: E11.621 Type 2 diabetes mellitus with foot ulcer (principal); L97.521 Non-pressure chronic ulcer of other part of left foot limited to breakdown of skin | CPT/HCPCS: 11042; 97597; A6250 ==

== ENCOUNTER → 2022-07-16 12:59 | Outpatient (BNVA) | payer MEDICARE, MEDICAID, SELFPAY | PROVIDERS: PCP Nurse Practitioner; Visit Provider Thoracic Surgery (Cardiothoracic Vascular Surgery) | DX: Z09 Encounter for follow-up examination after completed treatment for conditions other than malignant neoplasm (principal) | CPT/HCPCS: 99212; A6210 ==

== ENCOUNTER → 2022-07-21 11:02 | Outpatient (BNVA) | payer MEDICARE, MEDICAID, SELFPAY | PROVIDERS: PCP Nurse Practitioner; Visit Provider Thoracic Surgery (Cardiothoracic Vascular Surgery) | DX: I96 Gangrene, not elsewhere classified (principal); E11.621 Type 2 diabetes mellitus with foot ulcer; L97.512 Non-pressure chronic ulcer of other part of right foot with fat layer exposed | CPT/HCPCS: 97597; A6021 ==

== ENCOUNTER → 2022-07-24 11:16 | Outpatient (BNVA) | payer MEDICARE, MEDICAID, SELFPAY | PROVIDERS: PCP Nurse Practitioner; Visit Provider Nurse Practitioner | DX: E11.65 Type 2 diabetes mellitus with hyperglycemia (principal); Z79.4 Long term (current) use of insulin | CPT/HCPCS: 80053; 80061; 81000; 83036; 84443; 85025 ==

== ENCOUNTER → 2022-07-28 10:48 | Outpatient (BNVA) | payer MEDICARE, MEDICAID, SELFPAY | PROVIDERS: PCP Nurse Practitioner; Visit Provider Thoracic Surgery (Cardiothoracic Vascular Surgery) | DX: I96 Gangrene, not elsewhere classified (principal); E11.621 Type 2 diabetes mellitus with foot ulcer; L97.512 Non-pressure chronic ulcer of other part of right foot with fat layer exposed | CPT/HCPCS: 11042 ==

== ENCOUNTER → 2022-08-04 13:19 | Outpatient (BNVA) | payer MEDICARE, MEDICAID, SELFPAY | PROVIDERS: PCP Nurse Practitioner; Visit Provider Thoracic Surgery (Cardiothoracic Vascular Surgery) | DX: I96 Gangrene, not elsewhere classified (principal); E11.621 Type 2 diabetes mellitus with foot ulcer; L97.512 Non-pressure chronic ulcer of other part of right foot with fat layer exposed | CPT/HCPCS: 11042 ==

== ENCOUNTER → 2022-08-11 10:41 | Outpatient (BNVA) | payer MEDICARE, MEDICAID, SELFPAY | PROVIDERS: PCP Nurse Practitioner; Visit Provider Thoracic Surgery (Cardiothoracic Vascular Surgery) | DX: I96 Gangrene, not elsewhere classified (principal); E11.621 Type 2 diabetes mellitus with foot ulcer; L97.512 Non-pressure chronic ulcer of other part of right foot with fat layer exposed | CPT/HCPCS: 11042 ==

== ENCOUNTER → 2022-08-18 13:01 | Outpatient (BNVA) | payer MEDICARE, MEDICAID, SELFPAY | PROVIDERS: PCP Nurse Practitioner; Visit Provider Thoracic Surgery (Cardiothoracic Vascular Surgery) | DX: I96 Gangrene, not elsewhere classified (principal); E11.621 Type 2 diabetes mellitus with foot ulcer; L97.512 Non-pressure chronic ulcer of other part of right foot with fat layer exposed | CPT/HCPCS: 11042 ==

== ENCOUNTER → 2022-08-25 11:11 | Outpatient (BNVA) | payer MEDICARE, MEDICAID, SELFPAY | PROVIDERS: PCP Nurse Practitioner; Visit Provider Nurse Practitioner Family | DX: I96 Gangrene, not elsewhere classified (principal); E11.621 Type 2 diabetes mellitus with foot ulcer; L97.512 Non-pressure chronic ulcer of other part of right foot with fat layer exposed; L97.522 Non-pressure chronic ulcer of other part of left foot with fat layer exposed | CPT/HCPCS: 11042; 97597; A6251 ==

== ENCOUNTER 2022-09-01 12:17 | Outpatient (CLI) | payer MEDICARE, MEDICAID, SELFPAY ==
--- NOTE | 2022-09-01 12:36 | XR_ITS ---
WS: [email or web address] EXAMINATION: XR foot RT min 3V* [id number] REASON FOR EXAM: non-healing DM ulcer right lateral foot; r/o osteomyelitis COMPARISON: None available. ORDER DATE: 09/01/2022 12:38 PM TECHNIQUE: 3 views of the right foot were obtained. X-RAY FINDINGS: There are no fractures or dislocations. Lateral soft tissue swelling with some soft tissue ossificati on immediately below the skin surface adjacent to the fifth MTP joint.. Joint spaces are preserved. XR/XR foot RT min 3V* [id number] IMPRESSION: Lateral soft tissue edema extending into the fifth toe. No specific signs of os teomyelitis currently
== END 2022-09-01 12:18 | disposition home or self-care (01) ==
LOC: RAD 12:20
PROVIDERS: PCP Nurse Practitioner; Visit Provider Nurse Practitioner Family
DX: L97.509 Non-pressure chronic ulcer of other part of unspecified foot with unspecified severity (principal); E11.621 Type 2 diabetes mellitus with foot ulcer; R60.0 Localized edema
CPT/HCPCS: 73630; 97597

== ENCOUNTER → 2022-09-11 08:38 | Outpatient (BNVA) | payer MEDICARE, MEDICAID, SELFPAY | PROVIDERS: PCP Nurse Practitioner; Visit Provider Nurse Practitioner Family | DX: I96 Gangrene, not elsewhere classified (principal); E11.621 Type 2 diabetes mellitus with foot ulcer; L97.512 Non-pressure chronic ulcer of other part of right foot with fat layer exposed; Z09 Encounter for follow-up examination after completed treatment for conditions other than malignant neoplasm | CPT/HCPCS: 11042 ==

== ENCOUNTER → 2022-09-18 09:12 | Outpatient (BNVA) | payer MEDICARE, MEDICAID, SELFPAY | PROVIDERS: PCP Nurse Practitioner; Visit Provider Nurse Practitioner Family | DX: I96 Gangrene, not elsewhere classified (principal); E11.621 Type 2 diabetes mellitus with foot ulcer; L97.512 Non-pressure chronic ulcer of other part of right foot with fat layer exposed | CPT/HCPCS: 11042 ==

== ENCOUNTER 2022-09-26 06:12 | Outpatient (CLI) | payer MEDICARE, MEDICAID, SELFPAY ==
--- NOTE | 2022-09-26 06:30 | CT_ITS ---
WS: [email or web address] CT RIGHT FOOT, NONCONTRAST. 3-D IMAGING. HISTORY: Non healing wound Lat ft;R/O osteo Technique: All CT scans at [facility] use at least one of these dose optimization techniques: automated exposure control; mA and/or kV adjustment per patient size (includes targeted exams where dose is matched to clinical indication); or iterative reconstruction. DLP: 148.66 mGy.cm COMPARISON: Radiographs 09/01/2022. There is soft tissue thickening along the lateral RIGHT foot. Most significant thickening along the d istal fifth metatarsal. There is a very superficial ulcer noted lateral to the fifth metatarsal head and toe. This is superficial ulcer. There is underlying edema and soft tissue thickening. There is no destruction of the cortex identified. At this time there is no definite osteomyelitis. There is a we ll-circumscribed avulsion fracture from the proximal fifth metatarsal. There are additional small oss eous fragments throughout the foot related to aging and some of these may be sesamoids. These are all well-circumscribed. There is no acute fracture. No foreign bodies. Hammertoe deformities. CT/CT foot RT wo con* [id number] IMPRESSION: 1. There is a large amount of soft tissue edema most significant lateral to th e fifth metatarsal head and fifth toe. There is a very superficial ulceration a t this location. The ulceration is superficial but there is edema deep to the u lceration extending to the bone. No osteomyelitis at this time. 2. No foci of air within the ulceration.
== END 2022-09-26 06:13 | disposition home or self-care (01) ==
LOC: RAD 06:14
PROVIDERS: PCP Nurse Practitioner; Visit Provider Nurse Practitioner Family
DX: E11.621 Type 2 diabetes mellitus with foot ulcer (principal); L97.509 Non-pressure chronic ulcer of other part of unspecified foot with unspecified severity
CPT/HCPCS: 11042; 73700

== ENCOUNTER → 2022-09-30 09:20 | Outpatient (BNVA) | payer MEDICARE, MEDICAID, SELFPAY | PROVIDERS: PCP Nurse Practitioner; Visit Provider Nurse Practitioner Family | DX: I96 Gangrene, not elsewhere classified (principal); E11.621 Type 2 diabetes mellitus with foot ulcer; L97.512 Non-pressure chronic ulcer of other part of right foot with fat layer exposed | CPT/HCPCS: 11042 ==

== ENCOUNTER → 2022-10-07 08:30 | Outpatient (BNVA) | payer MEDICARE, MEDICAID, SELFPAY | PROVIDERS: PCP Nurse Practitioner; Visit Provider Nurse Practitioner Family | DX: E11.621 Type 2 diabetes mellitus with foot ulcer (principal); L97.512 Non-pressure chronic ulcer of other part of right foot with fat layer exposed | CPT/HCPCS: 11042 ==

== ENCOUNTER → 2022-10-14 08:30 | Outpatient (BNVA) | payer MEDICARE, MEDICAID, SELFPAY | PROVIDERS: PCP Nurse Practitioner; Visit Provider Nurse Practitioner Family | DX: E11.621 Type 2 diabetes mellitus with foot ulcer (principal); L97.512 Non-pressure chronic ulcer of other part of right foot with fat layer exposed | CPT/HCPCS: 11042; A6212 ×2 ==

== ENCOUNTER → 2022-10-16 10:26 | Outpatient (BNVA) | payer MEDICARE, MEDICAID, SELFPAY | PROVIDERS: PCP Nurse Practitioner; Visit Provider Nurse Practitioner Family | DX: E11.621 Type 2 diabetes mellitus with foot ulcer (principal); L97.512 Non-pressure chronic ulcer of other part of right foot with fat layer exposed | CPT/HCPCS: 29445; A6021; A6210; A6251 ==

== ENCOUNTER → 2022-10-21 08:09 | Outpatient (BNVA) | payer MEDICARE, MEDICAID, SELFPAY | PROVIDERS: PCP Nurse Practitioner; Visit Provider Nurse Practitioner Family | DX: I96 Gangrene, not elsewhere classified (principal); E11.621 Type 2 diabetes mellitus with foot ulcer; L97.512 Non-pressure chronic ulcer of other part of right foot with fat layer exposed; L89.892 Pressure ulcer of other site, stage 2 | CPT/HCPCS: 11042; A6021; A6206; A6250; Q4205 ==

== ENCOUNTER → 2022-10-23 09:56 | Outpatient (BNVA) | payer MEDICARE, MEDICAID, SELFPAY | PROVIDERS: PCP Nurse Practitioner; Visit Provider Nurse Practitioner Family | DX: E11.621 Type 2 diabetes mellitus with foot ulcer (principal); L97.512 Non-pressure chronic ulcer of other part of right foot with fat layer exposed; I96 Gangrene, not elsewhere classified; L97.322 Non-pressure chronic ulcer of left ankle with fat layer exposed | CPT/HCPCS: 97597; A6210; A6252 ==

== ENCOUNTER → 2022-10-28 08:06 | Outpatient (BNVA) | payer MEDICARE, MEDICAID, SELFPAY | PROVIDERS: PCP Nurse Practitioner; Visit Provider Nurse Practitioner Family | DX: I96 Gangrene, not elsewhere classified (principal); E11.621 Type 2 diabetes mellitus with foot ulcer; L97.512 Non-pressure chronic ulcer of other part of right foot with fat layer exposed; L89.892 Pressure ulcer of other site, stage 2 | CPT/HCPCS: 15275; 97597; A6021; A6206; A6210; A6250; Q4205 ==

== ENCOUNTER → 2022-11-04 08:42 | Outpatient (BNVA) | payer MEDICARE, MEDICAID, SELFPAY | PROVIDERS: PCP Nurse Practitioner; Visit Provider Nurse Practitioner Family | DX: I96 Gangrene, not elsewhere classified (principal); E11.621 Type 2 diabetes mellitus with foot ulcer; L97.512 Non-pressure chronic ulcer of other part of right foot with fat layer exposed; L89.892 Pressure ulcer of other site, stage 2 | CPT/HCPCS: 15275; 97597; A6206; A6212; A6250; Q4205 ==

== ENCOUNTER → 2022-11-11 07:57 | Outpatient (BNVA) | payer MEDICARE, MEDICAID, SELFPAY | PROVIDERS: PCP Nurse Practitioner; Visit Provider Nurse Practitioner Family | DX: I96 Gangrene, not elsewhere classified (principal); E11.621 Type 2 diabetes mellitus with foot ulcer; L97.512 Non-pressure chronic ulcer of other part of right foot with fat layer exposed; Z09 Encounter for follow-up examination after completed treatment for conditions other than malignant neoplasm; E11.65 Type 2 diabetes mellitus with hyperglycemia; E03.8 Other specified hypothyroidism; Z79.4 Long term (current) use of insulin | CPT/HCPCS: 15275; 80053; 80061; 83036; 84443; A6206; A6210; A6250; A6252; Q4205 ==

== ENCOUNTER → 2022-11-18 08:14 | Outpatient (BNVA) | payer MEDICARE, MEDICAID, SELFPAY | PROVIDERS: PCP Nurse Practitioner; Visit Provider Nurse Practitioner Family | DX: I96 Gangrene, not elsewhere classified (principal); E11.621 Type 2 diabetes mellitus with foot ulcer; L97.412 Non-pressure chronic ulcer of right heel and midfoot with fat layer exposed | CPT/HCPCS: 15275; A6206; A6250; A6252; Q4205 ==

== ENCOUNTER → 2022-11-25 07:50 | Outpatient (BNVA) | payer MEDICARE, MEDICAID, SELFPAY | PROVIDERS: PCP Nurse Practitioner; Visit Provider Nurse Practitioner Family | DX: Z09 Encounter for follow-up examination after completed treatment for conditions other than malignant neoplasm (principal) | CPT/HCPCS: 99212 ==

== ENCOUNTER → 2023-01-27 16:40 | Outpatient (BNVA) | payer MEDICARE, MEDICAID, SELFPAY | PROVIDERS: PCP Nurse Practitioner; Visit Provider Nurse Practitioner | DX: E11.65 Type 2 diabetes mellitus with hyperglycemia (principal); Z79.4 Long term (current) use of insulin; I10 Essential (primary) hypertension; E03.8 Other specified hypothyroidism | CPT/HCPCS: 80053; 81000; 83036; 84443 ==

== ENCOUNTER → 2023-03-17 14:38 | Outpatient (BNVA) | payer MEDICARE, MEDICAID, SELFPAY | PROVIDERS: PCP Nurse Practitioner; Visit Provider Nurse Practitioner | DX: E03.8 Other specified hypothyroidism (principal); E11.65 Type 2 diabetes mellitus with hyperglycemia; Z79.4 Long term (current) use of insulin; I10 Essential (primary) hypertension; Z87.898 Personal history of other specified conditions; B37.9 Candidiasis, unspecified; M51.36 Other intervertebral disc degeneration, lumbar region; R39.11 Hesitancy of micturition; F41.8 Other specified anxiety disorders | CPT/HCPCS: 80053; 83036; 84443; 85025 ==

== ENCOUNTER → 2023-06-17 16:20 | Outpatient (BNVA) | payer MEDICARE, MEDICAID, SELFPAY | PROVIDERS: PCP Nurse Practitioner; Visit Provider Nurse Practitioner | DX: E11.65 Type 2 diabetes mellitus with hyperglycemia (principal); Z79.4 Long term (current) use of insulin; R68.89 Other general symptoms and signs | CPT/HCPCS: 80053; 80061; 81000; 83036; 85025; 87400 ==

== ENCOUNTER → 2023-09-07 16:16 | Outpatient (BNVA) | payer MEDICARE, MEDICAID, SELFPAY | PROVIDERS: PCP Nurse Practitioner; Visit Provider Nurse Practitioner | DX: E11.9 Type 2 diabetes mellitus without complications (principal) | CPT/HCPCS: 80053; 83036 ==

== ENCOUNTER 2023-11-03 09:40 | Outpatient (CLI) | payer MEDICARE, MEDICAID, SELFPAY ==
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
== END 2023-11-03 09:41 | disposition home or self-care (01) ==
LOC: RAD 09:43
PROVIDERS: PCP Nurse Practitioner; Visit Provider Thoracic Surgery (Cardiothoracic Vascular Surgery)
DX: E11.621 Type 2 diabetes mellitus with foot ulcer (principal); L97.519 Non-pressure chronic ulcer of other part of right foot with unspecified severity; M20.11 Hallux valgus (acquired), right foot; M19.071 Primary osteoarthritis, right ankle and foot; M77.31 Calcaneal spur, right foot
CPT/HCPCS: 73620; 97597; 99213; A6210

== ENCOUNTER → 2023-11-10 08:57 | Outpatient (BNVA) | payer MEDICARE, MEDICAID, SELFPAY | PROVIDERS: PCP Nurse Practitioner; Visit Provider Thoracic Surgery (Cardiothoracic Vascular Surgery) | DX: E11.621 Type 2 diabetes mellitus with foot ulcer (principal); L97.411 Non-pressure chronic ulcer of right heel and midfoot limited to breakdown of skin | CPT/HCPCS: 97597; A6210 ==

== ENCOUNTER → 2023-11-17 08:09 | Outpatient (BNVA) | payer MEDICARE, MEDICAID, SELFPAY | PROVIDERS: PCP Nurse Practitioner; Visit Provider Thoracic Surgery (Cardiothoracic Vascular Surgery) | DX: E11.52 Type 2 diabetes mellitus with diabetic peripheral angiopathy with gangrene (principal); E11.621 Type 2 diabetes mellitus with foot ulcer; L97.411 Non-pressure chronic ulcer of right heel and midfoot limited to breakdown of skin | CPT/HCPCS: 97597; A6210 ==

== ENCOUNTER → 2023-11-23 16:34 | Outpatient (BNVA) | payer MEDICARE, MEDICAID, SELFPAY | PROVIDERS: PCP Nurse Practitioner; Visit Provider Nurse Practitioner | DX: E11.65 Type 2 diabetes mellitus with hyperglycemia (principal); Z79.4 Long term (current) use of insulin; E03.8 Other specified hypothyroidism | CPT/HCPCS: 80053; 80061; 83036; 84443 ==

== ENCOUNTER → 2023-11-24 08:22 | Outpatient (BNVA) | payer MEDICARE, MEDICAID, SELFPAY | PROVIDERS: PCP Nurse Practitioner; Visit Provider Thoracic Surgery (Cardiothoracic Vascular Surgery) | DX: E11.52 Type 2 diabetes mellitus with diabetic peripheral angiopathy with gangrene (principal); E11.621 Type 2 diabetes mellitus with foot ulcer; L97.411 Non-pressure chronic ulcer of right heel and midfoot limited to breakdown of skin | CPT/HCPCS: 97597; A6210; A6212 ==

== ENCOUNTER → 2023-12-01 08:51 | Outpatient (BNVA) | payer MEDICARE, MEDICAID, SELFPAY | PROVIDERS: PCP Nurse Practitioner; Visit Provider Thoracic Surgery (Cardiothoracic Vascular Surgery) | DX: E11.52 Type 2 diabetes mellitus with diabetic peripheral angiopathy with gangrene (principal); E11.621 Type 2 diabetes mellitus with foot ulcer; L97.411 Non-pressure chronic ulcer of right heel and midfoot limited to breakdown of skin | CPT/HCPCS: 97597 ==

== ENCOUNTER → 2023-12-08 09:46 | Outpatient (BNVA) | payer MEDICARE, MEDICAID, SELFPAY | PROVIDERS: PCP Nurse Practitioner; Visit Provider Thoracic Surgery (Cardiothoracic Vascular Surgery) | DX: E11.52 Type 2 diabetes mellitus with diabetic peripheral angiopathy with gangrene (principal); E11.621 Type 2 diabetes mellitus with foot ulcer; L97.411 Non-pressure chronic ulcer of right heel and midfoot limited to breakdown of skin | CPT/HCPCS: 97597; A6210 ==

== ENCOUNTER → 2023-12-15 08:51 | Outpatient (BNVA) | payer MEDICARE, MEDICAID, SELFPAY | PROVIDERS: PCP Nurse Practitioner; Visit Provider Thoracic Surgery (Cardiothoracic Vascular Surgery) | DX: E11.52 Type 2 diabetes mellitus with diabetic peripheral angiopathy with gangrene (principal); E11.621 Type 2 diabetes mellitus with foot ulcer; L97.411 Non-pressure chronic ulcer of right heel and midfoot limited to breakdown of skin | CPT/HCPCS: 97597; A6210 ==

== ENCOUNTER → 2023-12-22 08:55 | Outpatient (BNVA) | payer MEDICARE, MEDICAID, SELFPAY | PROVIDERS: PCP Nurse Practitioner; Visit Provider Nurse Practitioner Family | DX: E11.52 Type 2 diabetes mellitus with diabetic peripheral angiopathy with gangrene (principal); E11.621 Type 2 diabetes mellitus with foot ulcer; L97.412 Non-pressure chronic ulcer of right heel and midfoot with fat layer exposed | CPT/HCPCS: 11042 ==

== ENCOUNTER → 2024-01-05 13:52 | Outpatient (BNVA) | payer MEDICARE, MEDICAID, SELFPAY | PROVIDERS: PCP Nurse Practitioner; Visit Provider Nurse Practitioner Family | DX: E11.52 Type 2 diabetes mellitus with diabetic peripheral angiopathy with gangrene (principal); E11.621 Type 2 diabetes mellitus with foot ulcer; L97.411 Non-pressure chronic ulcer of right heel and midfoot limited to breakdown of skin | CPT/HCPCS: 97597 ==

== ENCOUNTER → 2024-01-13 07:53 | Outpatient (BNVA) | payer MEDICARE, MEDICAID, SELFPAY | PROVIDERS: PCP Nurse Practitioner; Visit Provider Thoracic Surgery (Cardiothoracic Vascular Surgery) | DX: Z09 Encounter for follow-up examination after completed treatment for conditions other than malignant neoplasm (principal); Z87.2 Personal history of diseases of the skin and subcutaneous tissue | CPT/HCPCS: 99212; A6210 ==

== ENCOUNTER → 2024-02-08 14:36 | Outpatient (BNVA) | payer MEDICARE, MEDICAID, SELFPAY | PROVIDERS: PCP Nurse Practitioner; Visit Provider Nurse Practitioner | DX: E11.65 Type 2 diabetes mellitus with hyperglycemia (principal); Z79.4 Long term (current) use of insulin; R05.9 Cough, unspecified | CPT/HCPCS: 71046; 80053; 83036; 85025 ==

== ENCOUNTER → 2024-04-04 12:57 | Outpatient (BNVA) | payer MEDICARE, MEDICAID, SELFPAY | PROVIDERS: PCP Nurse Practitioner; Visit Provider Internal Medicine Cardiovascular Disease | DX: R00.1 Bradycardia, unspecified (principal); I47.20 Ventricular tachycardia, unspecified; I47.10 Supraventricular tachycardia, unspecified; I49.1 Atrial premature depolarization; I49.3 Ventricular premature depolarization | CPT/HCPCS: 93242 ==

== ENCOUNTER → 2024-04-25 15:35 | Outpatient (BNVA) | payer MEDICARE, MEDICAID, SELFPAY | PROVIDERS: PCP Nurse Practitioner; Visit Provider Nurse Practitioner | DX: Z12.5 Encounter for screening for malignant neoplasm of prostate (principal); E11.9 Type 2 diabetes mellitus without complications; E03.8 Other specified hypothyroidism; I10 Essential (primary) hypertension | CPT/HCPCS: 80053; 80061; 82607; 83036; 84443; G0103 ==

== ENCOUNTER → 2024-07-04 16:28 | Outpatient (BNVA) | payer MEDICARE, MEDICAID, SELFPAY | PROVIDERS: PCP Nurse Practitioner; Visit Provider Nurse Practitioner | DX: E11.9 Type 2 diabetes mellitus without complications (principal); E03.8 Other specified hypothyroidism | CPT/HCPCS: 80053; 82607; 83036; 84443 ==

== ENCOUNTER → 2024-09-14 10:04 | Outpatient (BNVA) | payer MEDICARE, MEDICAID, SELFPAY | PROVIDERS: PCP Nurse Practitioner; Visit Provider Clinical Nurse Specialist Adult Health | DX: E11.621 Type 2 diabetes mellitus with foot ulcer (principal); L97.519 Non-pressure chronic ulcer of other part of right foot with unspecified severity | CPT/HCPCS: 85025; 85651; 86140 ==

== ENCOUNTER 2024-09-19 10:03 | Outpatient (CLI) | payer MEDICARE, MEDICAID, SELFPAY ==
--- NOTE | 2024-09-19 10:12 | XR_ITS ---
WS: [email or web address] Exam: XR foot RT min 3V* [id number] Date/Time of Exam: 09/19/2024 10:24 AM Reason For Exam: E11.621 - Type 2 diabetes mellitus with foot ulcer Prominent soft tissue ulceration along the MP joint of the fifth digit. No sign of bone destruction or fracture. Soft tissue swelling of the fifth toe. Minimal degenerative change of the IP joints and midfoot joints. No soft tissue foreign bodies. XR/XR foot RT min 3V* [id number] IMPRESSION: 1. No fracture or bone destruction identified. 2. Large soft tissue ulceration with edema along the fifth MP joint.
== END 2024-09-19 10:04 | disposition home or self-care (01) ==
LOC: RAD 10:09
PROVIDERS: PCP Nurse Practitioner; Visit Provider Thoracic Surgery (Cardiothoracic Vascular Surgery)
DX: E11.621 Type 2 diabetes mellitus with foot ulcer (principal); L97.519 Non-pressure chronic ulcer of other part of right foot with unspecified severity; R52 Pain, unspecified; E11.65 Type 2 diabetes mellitus with hyperglycemia; Z79.4 Long term (current) use of insulin; M79.89 Other specified soft tissue disorders; E11.52 Type 2 diabetes mellitus with diabetic peripheral angiopathy with gangrene; L97.512 Non-pressure chronic ulcer of other part of right foot with fat layer exposed; L97.412 Non-pressure chronic ulcer of right heel and midfoot with fat layer exposed
CPT/HCPCS: 10060; 11042; 73630; 80053; 80061; 82607; 83036; 84443; 87070; 87176; 87205

== ENCOUNTER → 2024-09-26 08:01 | Outpatient (BNVA) | payer MEDICARE, MEDICAID, SELFPAY | PROVIDERS: PCP Nurse Practitioner | DX: E11.52 Type 2 diabetes mellitus with diabetic peripheral angiopathy with gangrene (principal); E11.621 Type 2 diabetes mellitus with foot ulcer; L97.512 Non-pressure chronic ulcer of other part of right foot with fat layer exposed; L97.411 Non-pressure chronic ulcer of right heel and midfoot limited to breakdown of skin | CPT/HCPCS: 11042; A6219 ==

== ENCOUNTER → 2024-10-03 08:03 | Outpatient (BNVA) | payer MEDICARE, MEDICAID, SELFPAY | PROVIDERS: PCP Nurse Practitioner; Visit Provider Thoracic Surgery (Cardiothoracic Vascular Surgery) | DX: E11.52 Type 2 diabetes mellitus with diabetic peripheral angiopathy with gangrene (principal); E11.621 Type 2 diabetes mellitus with foot ulcer; L97.515 Non-pressure chronic ulcer of other part of right foot with muscle involvement without evidence of necrosis | CPT/HCPCS: 11042; A6210; A6248 ==

== ENCOUNTER → 2024-10-10 07:57 | Outpatient (BNVA) | payer MEDICARE, MEDICAID, SELFPAY | PROVIDERS: PCP Nurse Practitioner; Visit Provider Thoracic Surgery (Cardiothoracic Vascular Surgery) | DX: E11.52 Type 2 diabetes mellitus with diabetic peripheral angiopathy with gangrene (principal); E11.621 Type 2 diabetes mellitus with foot ulcer; L97.515 Non-pressure chronic ulcer of other part of right foot with muscle involvement without evidence of necrosis | CPT/HCPCS: 97597; A6210; A6213; A6252 ==

== ENCOUNTER → 2024-10-13 08:05 | Outpatient (BNVA) | payer MEDICARE, MEDICAID, SELFPAY | PROVIDERS: PCP Nurse Practitioner; Visit Provider Thoracic Surgery (Cardiothoracic Vascular Surgery) | DX: E11.52 Type 2 diabetes mellitus with diabetic peripheral angiopathy with gangrene (principal); E11.621 Type 2 diabetes mellitus with foot ulcer; L97.511 Non-pressure chronic ulcer of other part of right foot limited to breakdown of skin | CPT/HCPCS: 29445; A6197; A6251 ==

== ENCOUNTER → 2024-10-17 07:56 | Outpatient (BNVA) | payer MEDICARE, MEDICAID, SELFPAY | PROVIDERS: PCP Nurse Practitioner; Visit Provider Thoracic Surgery (Cardiothoracic Vascular Surgery) | DX: E11.52 Type 2 diabetes mellitus with diabetic peripheral angiopathy with gangrene (principal); E11.621 Type 2 diabetes mellitus with foot ulcer; L97.515 Non-pressure chronic ulcer of other part of right foot with muscle involvement without evidence of necrosis | CPT/HCPCS: 97597; A6197; A6252 ==

== ENCOUNTER → 2024-10-24 07:59 | Outpatient (BNVA) | payer MEDICARE, MEDICAID, SELFPAY | PROVIDERS: PCP Nurse Practitioner; Visit Provider Thoracic Surgery (Cardiothoracic Vascular Surgery) | DX: E11.52 Type 2 diabetes mellitus with diabetic peripheral angiopathy with gangrene (principal); E11.621 Type 2 diabetes mellitus with foot ulcer; L97.515 Non-pressure chronic ulcer of other part of right foot with muscle involvement without evidence of necrosis | CPT/HCPCS: 97597 ==

== ENCOUNTER → 2024-11-03 08:25 | Outpatient (BNVA) | payer MEDICARE, MEDICAID, SELFPAY | PROVIDERS: PCP Nurse Practitioner; Visit Provider Thoracic Surgery (Cardiothoracic Vascular Surgery) | DX: E11.52 Type 2 diabetes mellitus with diabetic peripheral angiopathy with gangrene (principal); E11.621 Type 2 diabetes mellitus with foot ulcer; L97.515 Non-pressure chronic ulcer of other part of right foot with muscle involvement without evidence of necrosis | CPT/HCPCS: 97597; 97605; A6237; A6250 ==

== ENCOUNTER → 2024-11-10 08:41 | Outpatient (BNVA) | payer MEDICARE, MEDICAID, SELFPAY | PROVIDERS: PCP Nurse Practitioner; Visit Provider Thoracic Surgery (Cardiothoracic Vascular Surgery) | DX: E11.52 Type 2 diabetes mellitus with diabetic peripheral angiopathy with gangrene (principal); E11.621 Type 2 diabetes mellitus with foot ulcer; L97.515 Non-pressure chronic ulcer of other part of right foot with muscle involvement without evidence of necrosis | CPT/HCPCS: 97597; A6237; A6250 ==

== ENCOUNTER → 2024-11-17 08:30 | Outpatient (BNVA) | payer MEDICARE, MEDICAID, SELFPAY | PROVIDERS: PCP Nurse Practitioner; Visit Provider Thoracic Surgery (Cardiothoracic Vascular Surgery) | DX: E11.52 Type 2 diabetes mellitus with diabetic peripheral angiopathy with gangrene (principal); E11.621 Type 2 diabetes mellitus with foot ulcer; L97.515 Non-pressure chronic ulcer of other part of right foot with muscle involvement without evidence of necrosis | CPT/HCPCS: 97597; 97605 ==

== ENCOUNTER → 2024-11-24 08:56 | Outpatient (BNVA) | payer MEDICARE, MEDICAID, SELFPAY | PROVIDERS: PCP Nurse Practitioner; Visit Provider Thoracic Surgery (Cardiothoracic Vascular Surgery) | DX: E11.52 Type 2 diabetes mellitus with diabetic peripheral angiopathy with gangrene (principal); E11.621 Type 2 diabetes mellitus with foot ulcer; L97.515 Non-pressure chronic ulcer of other part of right foot with muscle involvement without evidence of necrosis | CPT/HCPCS: 97597 ==

== ENCOUNTER 2024-12-01 09:44 | Outpatient (CLI) | payer MEDICARE, MEDICAID, SELFPAY ==
--- NOTE | 2024-12-01 09:52 | XR_ITS ---
WS: [email or web address] Right foot, 3 views, 12/01/2024 Clinical Data: R52 - Pain, unspecified Comparison: Right foot, 09/19/2024 Findings: No fractures or dislocations are seen. No bone destruction or erosion is noted. The soft tissue ulceration adjacent to the fifth MTP joint is barely visible. No foreign bodies are seen. XR/XR foot RT min 3V* [id number] Impression: 1. Decrease in soft tissue ulceration adjacent to right fifth MTP joint. 2. No evidence of osteomyelitis.
[2024-12-01 10:29] LABS: Basophils # 0.1 10^3/uL (0.0-0.1); Basophils % 0.7 %; Eosinophils # 0.2 10^3/uL (0.0-0.8); Eosinophils % 2.6 %; Hematocrit 36.1 % (37-53); Lymphocytes # 2.9 10^3/uL (0.8-4.8); Lymphocytes % 32.7 %; Mean Corpuscular HGB Conc 34.6 g/dL (30-55); Mean Corpuscular Hemoglobin 29.4 pg (27-33); Mean Corpuscular Volume 84.9 fl (82-101); Mean Platelet Volume 9.9 fL (7.4-10.4); Monocytes # 0.8 10^3/uL (0.2-0.9); Monocytes % 8.5 %; Neutrophils % 55.3 %; Nucleated Red Blood Cells % 0 %; Platelet Count 278 10^3/cmm (157-399); Red Blood Count 4.25 10^6/uL (3.85-5.65); Red Cell Distribution Width 13.9 % (12.1-15.1); White Blood Count 8.86 10^3/uL (3.29-11.43)
[2024-12-01 10:37] LABS: Erythrocyte Sedimentation Rate 38 mm/hr (0-10)
[2024-12-01 10:50] LABS: Alanine Aminotransferase 15 U/L (0-41); Albumin Level 3.5 g/dL (3.5-5.2); Alkaline Phosphatase 100 U/L (40-130); Anion Gap 13.7 (5-19); Aspartate Amino Transferase 14 U/L (0-40); Blood Urea Nitrogen 21 mg/dL (8-23); C Reactive Protein 36.6 mg/L (0.0-4.9); Calcium 8.8 mg/dL (8.5-10.5); Carbon Dioxide 24 mmol/L (22-29); Chloride 96 mmol/L (98-107); Globulin 3.5 g/dL (1.3-4.6); Glomerular Filtration Rate 112.1 mL/min (90-130); Glucose 304 mg/dL (65-115); Osmolality Calculated 282 mOsm/kg (285-295); Potassium 4.7 mmol/L (3.5-5.1); Sodium 129 mmol/L (136-145); Total Bilirubin 0.4 mg/dL (0.15-1.2)
== END 2024-12-01 09:45 | disposition home or self-care (01) ==
LOC: RAD 09:48
PROVIDERS: PCP Nurse Practitioner; Visit Provider Thoracic Surgery (Cardiothoracic Vascular Surgery)
DX: L97.512 Non-pressure chronic ulcer of other part of right foot with fat layer exposed (principal); E11.621 Type 2 diabetes mellitus with foot ulcer; L97.509 Non-pressure chronic ulcer of other part of unspecified foot with unspecified severity; R93.89 Abnormal findings on diagnostic imaging of other specified body structures; E11.52 Type 2 diabetes mellitus with diabetic peripheral angiopathy with gangrene; L97.515 Non-pressure chronic ulcer of other part of right foot with muscle involvement without evidence of necrosis
CPT/HCPCS: 11042; 36415; 73630; 80053; 85025; 85651; 86140; 87070; 87077; 87176; 87186; 87205; A6197

== ENCOUNTER → 2024-12-08 08:46 | Outpatient (BNVA) | payer MEDICARE, MEDICAID, SELFPAY | PROVIDERS: PCP Nurse Practitioner; Visit Provider Thoracic Surgery (Cardiothoracic Vascular Surgery) | DX: E11.52 Type 2 diabetes mellitus with diabetic peripheral angiopathy with gangrene (principal); E11.621 Type 2 diabetes mellitus with foot ulcer; L97.515 Non-pressure chronic ulcer of other part of right foot with muscle involvement without evidence of necrosis | CPT/HCPCS: 11042; A6197 ==

== ENCOUNTER 2024-12-13 07:37 | Outpatient (CLI) | payer MEDICARE, MEDICAID, SELFPAY ==
--- NOTE | 2024-12-13 08:00 | NM_ITS ---
WS: [email or web address] THREE-PHASE BONE SCAN HISTORY: E11.621 - Type 2 diabetes mellitus with foot ulcer COMPARISON: Radiograph RIGHT foot 12/01/2024 Patient is is injected with 25.2 mCi Tc99m HDP intravenously. Immediate angiographic phase imaging is performed over the area of concern. Static blood pool imaging also performed. Two-hour whole-body scintigrams performed in anterior and posterior projections. Additional large field of view imaging sub mitted as necessary. Angiographic and blood pool imaging is positive involving head of the fifth metatarsal and the proximal fifth phalanx. There is significant soft tissue and bone uptake. Mild soft tissue uptake and blood pool uptake also involving the distal RIGHT ankle and nearly the entire soft tissues of the RIGHT foot. On the delayed imaging there is high-grade focal uptake in the distal fifth metatarsal and the proximal fifth phalanges. Approximately half of the proximal fifth toe with increased uptake. LEFT foot is negative. Mild AC joint arthritis. Mild AC joint arthritis. No rib or spine abnormalities. Intermediate uptake in the distal RIGHT ankle. Normal uptake in the kidneys and soft tissues. NM/NM bone 3 phase [id number] IMPRESSION: 1. Cellulitis and osteomyelitis involving the fifth metatarsal head with exten martinez into the proximal fifth phalanx. At least 50% of the proximal fifth phalan x with osteomyelitis. 2. Additional cellulitis involving the RIGHT ankle and nearly the entire RIGHT foot.
== END 2024-12-13 07:38 | disposition home or self-care (01) ==
PROVIDERS: PCP Nurse Practitioner; Visit Provider Thoracic Surgery (Cardiothoracic Vascular Surgery)
DX: E11.621 Type 2 diabetes mellitus with foot ulcer (principal); L03.031 Cellulitis of right toe; M86.171 Other acute osteomyelitis, right ankle and foot; L03.115 Cellulitis of right lower limb; M19.011 Primary osteoarthritis, right shoulder; R93.7 Abnormal findings on diagnostic imaging of other parts of musculoskeletal system
CPT/HCPCS: 78315; A9561

== ENCOUNTER → 2024-12-14 07:57 | Day surgery (SDC) | payer MEDICARE, MEDICAID, SELFPAY ==
[2024-12-14 08:40] VITALS: BP 150/82; PULSE 73; RESP 18; TEMP 36.4; O2SAT 97; BMI 31.3
--- NOTE | 2024-12-14 10:00 | XR_ITS ---
WS: [id number] XR chest 1V portable [id number] REASON FOR EXAM: POST PICC INSERTION FINDINGS: Right arm PICC line placement. Tip of the catheter is in the mid SVC. Reportedly 1 cm of catheter remains for advancement. It was recommended to advance the remaining [address] the PICC line in a more optimal positioning in the distal SVC. PICC line position and advancement instructions over the phone with the radiology interventional physician at 10:03 a.m. XR/XR chest 1V portable [id number] IMPRESSION: Right arm PICC line placement as above.
[2024-12-14] MEDS: cefTRIAXone 1,000 mg SDV 1000 MG IVP (10:20)
== END ==
LOC: GILAB 07:57
PROVIDERS: PCP Nurse Practitioner; Visit Provider Thoracic Surgery (Cardiothoracic Vascular Surgery)
DX: E11.621 Type 2 diabetes mellitus with foot ulcer (principal); L97.509 Non-pressure chronic ulcer of other part of unspecified foot with unspecified severity; E11.69 Type 2 diabetes mellitus with other specified complication; M86.9 Osteomyelitis, unspecified; Z88.8 Allergy status to other drugs, medicaments and biological substances; Z88.4 Allergy status to anesthetic agent
CPT/HCPCS: 36573; 71045; 96374; J0696

== ENCOUNTER → 2024-12-15 08:10 | Outpatient (BNVA) | payer MEDICARE, MEDICAID, SELFPAY | PROVIDERS: PCP Nurse Practitioner; Visit Provider Thoracic Surgery (Cardiothoracic Vascular Surgery) | DX: E11.52 Type 2 diabetes mellitus with diabetic peripheral angiopathy with gangrene (principal); E11.621 Type 2 diabetes mellitus with foot ulcer; L97.511 Non-pressure chronic ulcer of other part of right foot limited to breakdown of skin | CPT/HCPCS: 97597 ==

== ENCOUNTER → 2024-12-21 13:02 | Outpatient (BNVA) | payer MEDICARE, MEDICAID, SELFPAY | PROVIDERS: PCP Nurse Practitioner; Visit Provider Thoracic Surgery (Cardiothoracic Vascular Surgery) | DX: E11.52 Type 2 diabetes mellitus with diabetic peripheral angiopathy with gangrene (principal); E11.621 Type 2 diabetes mellitus with foot ulcer; L97.511 Non-pressure chronic ulcer of other part of right foot limited to breakdown of skin | CPT/HCPCS: 97597; A6197 ==

== ENCOUNTER → 2024-12-23 10:02 | Outpatient (BNVA) | payer MEDICARE, MEDICAID, SELFPAY | PROVIDERS: PCP Nurse Practitioner; Referring Provider Thoracic Surgery (Cardiothoracic Vascular Surgery); Visit Provider Internal Medicine | DX: E11.621 Type 2 diabetes mellitus with foot ulcer (principal); L97.512 Non-pressure chronic ulcer of other part of right foot with fat layer exposed; E11.65 Type 2 diabetes mellitus with hyperglycemia; Z79.4 Long term (current) use of insulin; E78.2 Mixed hyperlipidemia; E11.69 Type 2 diabetes mellitus with other specified complication | CPT/HCPCS: 99204 ==

== ENCOUNTER → 2024-12-28 11:10 | Outpatient (BNVA) | payer MEDICARE, MEDICAID, SELFPAY | PROVIDERS: PCP Nurse Practitioner; Visit Provider Thoracic Surgery (Cardiothoracic Vascular Surgery) | DX: E11.52 Type 2 diabetes mellitus with diabetic peripheral angiopathy with gangrene (principal); E11.621 Type 2 diabetes mellitus with foot ulcer; L97.515 Non-pressure chronic ulcer of other part of right foot with muscle involvement without evidence of necrosis | CPT/HCPCS: 97597; A6197 ==

== ENCOUNTER → 2025-01-04 09:42 | Outpatient (BNVA) | payer MEDICARE, MEDICAID, SELFPAY | PROVIDERS: PCP Nurse Practitioner; Visit Provider Thoracic Surgery (Cardiothoracic Vascular Surgery) | DX: E11.52 Type 2 diabetes mellitus with diabetic peripheral angiopathy with gangrene (principal); E11.621 Type 2 diabetes mellitus with foot ulcer; L97.511 Non-pressure chronic ulcer of other part of right foot limited to breakdown of skin | CPT/HCPCS: 97597; A6197 ==

== ENCOUNTER 2025-01-08 12:25 | Emergency (ER) | payer MEDICARE, MEDICAID, SELFPAY ==
--- OUTSIDE RECORDS SUMMARY | 2025-01-08 12:28 | XMS_ITS | Encounter Summary ---
Author Organization [facility] Address [address] [place] [address] Care Team Providers Care Subway Operator Name Role Phone Elaine Sutton MD Primary Care Provider +1- [phone] Encounter Details Date Type Department Care Team (Late st Contact Info) Description 12/13/2020 Lab Requisition [facility] Services [address] 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 Gender Identity Not on file Sexual Orientation Not on file documented as of this encounter Plan of Treatment Not on file documented as of this encounter Procedures Procedure Name Priority Date/Time Associated Diagnosis Comments CBC WITH DIFFERENTIAL Routine 12/13/2020 3:30 AM CDT COMPREHENSIVE METABOLIC PANEL Routine 12/13/2020 3:30 AM CDT documented in this encounter Results * (ABNORMAL) CBC WITH DIFFERENTIAL (12/13/2020 3:30 AM CDT) WBC 15.0(H) 4.8 - 10.8 K/uL 12/13/2020 11:16 AM [facility] RBC 4.24(L) 4.60 - 6.20 M/uL 12/13/2020 11:16 AM [facility] HEMOGLOBIN 11.6(L) 14.0 - 18.0 g/dL 12/13/2020 11:16 AM [facility] HEMATOCRIT 36.9(L) 41.0 - 53.0 % 12/13/2020 11:16 AM [facility] MCV 87.0 84.0 - 103.0 fL 12/13/2020 11:16 AM [facility] MCH 27.4 27.0 - 34.0 pg 12/13/2020 11:16 AM [facility] MCHC 31.4 30.0 - 35.0 g/dL 12/13/2020 11:16 AM [facility] RDW 13.6 11.0 - 14.5 % 12/13/2020 11:16 AM [facility] RDW-STDEV 41.7 37.0 - 54.0 fL 12/13/2020 11:16 AM [facility] PLATELETS 434 140 - 440 K/uL 12/13/2020 11:16 AM [facility] MPV 9.8 8.9 - 12.8 fL 12/13/2020 11:16 AM [facility] NEUTROPHILS 66 42 - 75 % 12/13/2020 11:16 AM [facility] LYMPHOCYTES 27 24 - 44 % 12/13/2020 11:16 AM [facility] MONOCYTES 6 2 - 10 % 12/13/2020 11:16 AM [facility] EOSINOPHILS 1 0 - 7 % 12/13/2020 11:16 AM [facility] BASOPHILS 0 0 - 1 % 12/13/2020 11:16 AM [facility] IMMATURE GRANULOCYTES 1 0 - 2 % 12/13/2020 11:16 AM CDT [facility] NEUTROPHIL ABSOLUTE 9.87(H) 2.00 - 8.00 K/uL 12/13/2020 11:16 AM CDT [facility] LYMPHOCYTE ABSOLUTE 4.09(H) 1.20 - 4.00 K/uL 12/13/2020 11:16 AM CDT [facility] MONOCYTE ABSOLUTE 0.84(H) 0.10 - 0.60 K/uL 12/13/2020 11:16 AM CDT [facility] EOSINOPHIL ABSOLUTE 0.11 0.00 - 0.70 K/uL 12/13/2020 11:16 AM CDT [facility] BASOPHILS ABSOLUTE 0.01 0.00 - 0.20 K/uL 12/13/2020 11:16 AM CDT [facility] IMMATURE GRANULOCYTES ABSOLUTE 0.07 0.00 - 0.10 K/uL 12/13/2020 11:16 AM T [facility] Blood 12/13/2020 3:30 AM CDT 12/13/2020 10:44 AM CDT us Erlinda Alonzo NP HEMATOLOGY ORDERABLES Final Res ult [facility] [address] [place] [address] * (ABNORMAL) COMPREHENSIVE METABOLIC PANEL (12/13/2020 3:30 AM CDT) SODIUM 134(L) 136 - 145 mmol/L 12/13/2020 11:35 AM CDT [facility] POTASSIUM 4.2 3.5 - 5.1 mmol/L 12/13/2020 11:35 AM CDT [facility] CHLORIDE 99 98 - 107 mmol/L 12/13/2020 11:35 AM CDT [facility] CO2 26 22 - 29 mmol/L 12/13/2020 11:35 AM CDT [facility] CALCIUM 8.3(L) 8.8 - 10.2 mg/dL 12/13/2020 11:35 AM [facility] BUN 20 8 - 23 mg/dL 12/13/2020 11:35 AM [facility] CREATININE 0.66(L) 0.67 - 1.17 mg/dL 12/13/2020 11:35 AM [facility] GLUCOSE 53(L) 74 - 99 mg/dL 12/13/2020 11:35 AM [facility] TOTAL PROTEIN 6.1(L) 6.4 - 8.3 g/dL 12/13/2020 11:35 AM [facility] ALBUMIN 2.5(L) 3.5 - 5.2 g/dL 12/13/2020 11:35 AM [facility] BILIRUBIN TOTAL 0.3 0.2 - 1.0 mg/dL 12/13/2020 11:35 AM [facility] ALKALINE PHOSPHATASE 80 40 - 129 U/L 12/13/2020 11:35 AM [facility] AST 13 10 - 50 U/L 12/13/2020 11:35 AM [facility] ALT 36 <=50 U/L 12/13/2020 11:35 AM [facility] GFR >60 mL/min/1. 73 sq meter 12/13/2020 11:35 AM [facility] Comment: eGFR has not been validated for use in the elderly (> 70 years of age), women, patients with serious co-morbid conditions, or persons with extremes of body size or muscle mass and should also be interpreted with caution in patients with acute kidney failure, dialysis dependent patients, patients reporting exceptional dietary intake (e.g. vegetarian diet, high protein diets, creatine supplementation), and patients with severe liver disease. Based on National Kidney Disease Education Program If patient is , please refer to the GFR result. GFR, >60 mL/min/1. 73 sq meter 12/13/2020 11:35 AM [facility] ANION GAP 9 9 - 20 mmol/L 12/13/2020 11:35 AM [facility] Blood 12/13/2020 3:30 AM CDT 12/13/2020 10:44 AM CDT us Erlinda Alonzo NP CHEMISTRY ORDERABLES Final Resu lt [facility] [address] [place] [address] documented in this encounter Visit Diagnoses Not on filedocumented in this encounter Additional Health Concerns Infection Onset Date Last Indicated Resolved Time COVID-19 11/24/2020 11/24/2020 12/17/2020 1:16 AM CDT documented as of this encounter Care Teams Subway Operator Relationship Specialty Start Date End Date Elaine Sutton MD [address] [place] [address] PCP - General Internal Medicine 04/30/17 documented as of this encounter
--- OUTSIDE RECORDS SUMMARY | 2025-01-08 12:28 | XMS_ITS ---
Author Organization [facility] Address [address] [place] [address] Phone Care Team Providers Care Photographic Editor Name Role Phone Elaine Sutton MD Primary Care Provider +1- [phone] Active Problems Problem Noted Date Diagnosed Date Pneumonia due to COVID-19 virus 11/25/2020 Pleural effusion on right 11/24/2020 Severe obesity (BMI 35.0-39.9) with comorbidity 11/21/2020 Hypothyroidism 11/21/2020 Chronic diastolic CHF (congestive heart failure) 11/21/2020 Acute deep vein thrombosis ( DVT) of calf muscle vein of left lower extremity 11/20/2020 Pulmonary Debility r/t Pneumonia 11/20/2020 Pneumonia due to infectious organism 11/14/2020 Acute hyponatremia 11/12/2020 Unable to walk due ti suspected hydrocephalus ex acerbation 11/12/2020 Intractable nausea and vomiting 11/12/2020 Cough 11/12/2020 Intractable chronic migraine without aura and without status migrainosus 01/20/2018 Closed head injury 08/13/2017 Subdural hematoma 08/13/2017 ASHD (arteriosclerotic heart disease) 11/13/2016 Dyslipidemia 11/13/2016 Chest pain 10/30/2016 Bradycardia 10/30/2016 REM behavioral disorder 08/29/2016 Chronic headache 08/29/2016 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 Two weeks after VPS. [place]-VPS area stroke? Rx Keppra. 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 CDR 1 on 02/10/2016. Brainstem lesion 02/08/2016 Hydrocephalus - Obstructive hydrocephalus versus normal-pressure hydrocephalus. 02/08/2016 Current Treatment and Therapy Plans No current plan information found. Past Treatment and Therapy Plans No past plan information found. 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
--- OUTSIDE RECORDS SUMMARY | 2025-01-08 12:28 | XMS_ITS | Encounter Summary ---
Author Organization [facility] Address [address] [place] [address] Care Team Providers Care Telecommunications Cable Jointer Name Role Phone Elaine Sutton MD Primary Care Provider +1- [phone] Encounter Details Date Type Department Care Team (Late st Contact Info) Description 12/13/2020 Lab Requisition [facility] Laboratory Services [address] [place] [id number] [place] [address] [place] [address] Social History Tobacco Use Types Packs/Day Years Used Date Smoking Tobacco: Never Smokeless Tobacco: Never Alcohol Use Standard Drinks/Week Comments No 0 (1 standard drink = 0.6 oz pur e alcohol) Sex and Gender Information Value Date Recorded Sex Assigned at Not on file 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 Gender Identity Not on file Sexual Orientation Not on file documented as of this encounter Plan of Treatment Not on file documented as of this encounter Procedures Procedure Name Priority Date/Time Associated Diagnosis Comments TSH REFLEXIVE Routine 12/13/2020 2:40 PM CDT CBC WITH DIFFERENTIAL Routine 12/13/2020 2:40 PM CDT BRAIN NATRIURETIC PEPTIDE, BNP OR PROBNP Routine 12/13/2020 2:40 PM CDT RENAL FUNCTION PANEL Routine 12/13/2020 2:40 PM CDT documented in this encounter Results * TSH REFLEXIVE (12/13/2020 2:40 PM CDT) Pathologist [facility] TSH 2.10 0.27 - 4.20 uIU/mL 12/13/2020 7:25 PM CDT [facility] Blood Collection / Unknown 12/13/2020 2:40 PM CDT 12/13/2020 6:40 PM CDT us Roberto Carrington MD CHEMISTRY ORDERABLES Final Resu lt [facility] [address] [place] [address] * (ABNORMAL) CBC WITH DIFFERENTIAL (12/13/2020 2:40 PM CDT) Pathologist [facility] WBC 8.8 4.8 - 10.8 K/uL 12/13/2020 8:19 PM CDT [facility] RBC 3.86(L) 4.60 - 6.20 M/uL 12/13/2020 8:19 PM CDT [facility] HEMOGLOBIN 10.6(L) 14.0 - 18.0 g/dL 12/13/2020 8:19 PM CDT [facility] HEMATOCRIT 33.4(L) 41.0 - 53.0 % 12/13/2020 8:19 PM CDT [facility] MCV 86.5 84.0 - 103.0 fL 12/13/2020 8:19 PM CDT [facility] MCH 27.5 27.0 - 34.0 pg 12/13/2020 8:19 PM CDT [facility] MCHC 31.7 30.0 - 35.0 g/dL 12/13/2020 8:19 PM CDT [facility] RDW 13.8 11.0 - 14.5 % 12/13/2020 8:19 PM CDT [facility] RDW-STDEV 42.3 37.0 - 54.0 fL 12/13/2020 8:19 PM CDT [facility] PLATELETS 503(H) 140 - 440 K/uL 12/13/2020 8:19 PM CDT [facility] MPV 9.5 8.9 - 12.8 fL 12/13/2020 8:19 PM CDT [facility] Blood Collection / Unknown 12/13/2020 2:40 PM CDT 12/13/2020 6:40 PM CDT Roberto Carrington MD HEMATOLOGY ORDERABLES Final Res ult Performing Organization Address City/[facility]/ZIP Co de Phone Number [facility] [address] [place], [place] [id number] * (ABNORMAL) BRAIN NATRIURETIC PEPTIDE, BNP OR PROBNP (12/13/2020 2:40 PM CDT) PROBNP, N TERMINAL 293(H) 0 - 125 pg/mL 12/13/2020 7:25 PM CDT [facility] Blood Collection / Unknown 12/13/2020 2:40 PM CDT 12/13/2020 6:40 PM CDT us Roberto Carrington MD CHEMISTRY ORDERABLES Final Resu lt Performing Organization Address [facility]/ZIP Co de Phone Number [address] [id number] * (ABNORMAL) RENAL FUNCTION PANEL (12/13/2020 2:40 PM CDT) SODIUM 133(L) 136 - 145 mmol/L 12/13/2020 7:25 PM CDT [facility] POTASSIUM 4.7 3.5 - 5.1 mmol/L 12/13/2020 7:25 PM CDT [facility] CHLORIDE 99 98 - 107 mmol/L 12/13/2020 7:25 PM CDT [facility] CO2 27 22 - 29 mmol/L 12/13/2020 7:25 PM CDT [facility] CALCIUM 8.1(L) 8.8 - 10.2 mg/dL 12/13/2020 7:25 PM CDT [facility] BUN 20 8 - 23 mg/dL 12/13/2020 7:25 PM CDT [facility] CREATININE 0.66(L) 0.67 - 1.17 mg/dL 12/13/2020 7:25 PM CDT [facility] GLUCOSE 213(H) 74 - 99 mg/dL 12/13/2020 7:25 PM T [facility] ALBUMIN 2.4(L) 3.5 - 5.2 g/dL 12/13/2020 7:25 PM CDT [facility] PHOSPHORUS 4.3 2.5 - 4.5 mg/dL 12/13/2020 7:25 PM CDT [facility] GFR >60 mL/min/1. 73 sq meter 12/13/2020 7:25 PM T [facility] Comment: eGFR has not been validated for [...] GFR, >60 mL/min/1. 73 sq meter 12/13/2020 7:25 PM T [facility] ANION GAP 7(L) 9 - 20 mmol/L 12/13/2020 7:25 PM T [facility] Blood Collection / Unknown 12/13/2020 2:40 PM CDT 12/13/2020 6:40 PM CDT us Roberto Carrington MD CHEMISTRY ORDERABLES Final Resu lt [facility] [address] [place] [address] documented in this encounter Visit Diagnoses Not on filedocumented in this encounter Additional Health Concerns Infection Onset Date Last Indicated Resolved Time COVID-19 11/24/2020 11/24/2020 12/17/2020 1:16 AM CDT documented as of this encounter Care Teams Telecommunications Cable Jointer Relationship Specialty Start Date End Date Elaine Sutton MD [address] [place] [address] PCP - General Internal Medicine 04/30/17 documented as of this encounter
--- OUTSIDE RECORDS SUMMARY | 2025-01-08 12:28 | XMS_ITS | Clinical Summary ---
Author Organization [facility] Address [address] [place] [address] Phone Care Team Providers Care Manager Respiratory Care Name Role Phone Elaine Sutton MD Primary Care Provider +1- [phone] Allergies Active Allergy Reactions Criticality Noted Date Comments Lorazepam Hypertension Medium 11/19/2020 Procaine Dizziness Low 02/05/2016 Medications metFORMIN (GLUCOPHAGE XR) 500 mg Extended Release 24 hour tablet Take 500 mg by mouth 2 times daily with meals. Active pravastatin (PRAVACHOL) 40 mg tablet Take 40 mg by mouth late in the day. Active aspirin (WOJCIECH CHEWABLE) 81 mg Tablet, Chewable Take 81 mg by mouth daily. Active lisinopril (PRINIVIL) 2.5 mg tablet Take 1 Tablet by mouth daily. 0 9 Active levothyroxine 88 mcg tablet Take 1 Tablet by mouth daily. 6 9 Active metoprolol tartrate (LOPRESSOR) 50 mg tablet Take 1 Tablet by mouth 2 times daily. 0 9 Active OQO ULTRA2 METER Kit USE DIRECTED 0 9 Active ONE TOUCH DELICA 33 gauge USE TO CHECK BLOOD SUGAR TWICE DAILY 3 9 Active ONETOUCH ULTRA BLUE TEST STRIP Strip USE ONE STRIP TO CHECK SUGAR TWICE DAILY 3 9 Active nortriptyline (PAMELOR) 10 mg capsule TAKE THREE CAPSULES BY MOUTH DAILY AT BEDTIME 90 Capsule 0 Active levETIRAcetam (KEPPRA) 750 mg TabletIndicatio ns:Tonic-clonic seizure disorder (CMS/HCC) TAKE ONE TABLET BY MOUTH TWICE DAILY 60 Tablet 5 1 Active digoxin (LANOXIN) 125 mcg (0.125 mg) tablet Take 1 Tablet (125 mcg) by mouth daily. 1 Active pantoprazole (Protonix) 40 mg Tablet, Delayed Release (E.C.) Take 1 Tablet (40 mg) by mouth daily. 1 Active tamsulosin (FLOMAX) 0.4 mg capsule Take 1 Capsule (0.4 mg) by mouth daily after supper. 1 Active venlafaxine (EFFEXOR) 37.5 mg tablet Take 2 Tablets (75 mg) by mouth daily. 1 Active enoxaparin (LOVENOX) 60 mg/0.6 mL injection Inject 0.5 mL (50 mg) by subcutaneous injection every 12 hours. To be continued until as determined appropriate per [facility] physician 0 1 Active insulin glargine (LANTUS) 100 unit/mL injection Inject 42 Units by subcutaneous injection 2 times daily. 3 mL 1 Active insulin lispro (HumaLOG) 100 unit/mL pen syringe Inject 0-7 Units by subcutaneous injection 3 times daily with meals. Give when NPO or WITH MEAL. Medium-Dose Meal Correction: Less than or equal to 139 = no correctional insulin 140 - 175 = give and/or add 1 unit 176 - 200 = give and/or add 2 units 201 - 250 = give and/or add 3 units 251 - 299 = give and/or add 5 units 300 and greater = give and/or add 7 units CONTACT PROVIDER - If blood sugar greater than 250 mg/dL - If blood sugar greater than 180 mg/dL for two consecutive readings 15 mL 1 Active insulin lispro (HumaLOG) 100 unit/mL pen syringe Inject 0-4 Units by subcutaneous injection daily at bedtime. * MUST be given at least 4 hours after last insulin dose. Medium-Dose Bedtime Correction: Less than or equal to 175 = no correctional insulin 176 - 200 = give and/or add 1 unit 201 - 250 = give and/or add 2 units 251 - 299 = give and/or add 3 units 300 and greater = give and/or add 4 units CONTACT PROVIDER - If blood sugar greater than 250 mg/dL - If blood sugar greater than 180 mg/dL for two consecutive readings 15 mL 1 Active albuterol HFA 90 mcg inhaler Take 2 Puffs by inhalation every 6 hours as needed for Shortness of Breath. 8.5 Gram 1 Active cyanocobalamin 1,000 mcg Tablet Take 1 Tablet (1,000 mcg) by mouth daily. 1 Active dextromethorpha n-guaiFENesin (ROBITUSSIN DM) 10-100 mg/5 mL solution Take 10 mL by mouth every 4 hours as needed for Cough. 1 Active magnesium citrate solution Take 296 mL by mouth 1 time daily as needed for Constipation. 1 Active melatonin 3 mg Tablet Take 2 Tablets (6 mg) by mouth daily at bedtime. 1 Active multivitamin,ca lcium,minerals, iron,folic acid (THERA-M,THERA- M PLUS) 9 mg iron-400 mcg Tablet Take 1 Tablet by mouth daily. 1 Active OLANZapine (ZyPREXA ZYDIS) 5 mg Tablet, Rapid Dissolve Take 1 Tablet (5 mg) by mouth 2 times daily. 1 1 Active sennosides-docu sate sodium (SENNA-S) 8.6-50 mg tablet Take 1 Tablet by mouth 2 times daily. 1 Active morphine (ROXANOL) 100 mg/5 mL (20 mg/mL) SolutionIndicat ions:Acute on chronic respiratory failure with hypoxia (CMS/HCC) Take 0.125 mL (2.5 mg) by mouth every 6 hours. Max Daily Amount: 10 mg 15 mL 1 Active insulin lispro (HumaLOG) 100 unit/mL pen syringe Inject 9 Units by subcutaneous injection 3 times daily with meals. 15 mL 1 Active predniSONE (DELTASONE) 10 mg tablet 40 mg for 10 days, then 30mg for 1 week, then 20 mg for 5 days then 10mg for 5 days, then off. 80 Tablet 1 Active bumetanide (BUMEX) 1 mg tablet Take 0.5 Tablets (0.5 mg) by mouth 2 times daily. 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 Two weeks after VPS. Christen-VPS area stroke? Rx Dimitrios. 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 CDR 1 on 02/10/2016. Brainstem lesion 02/08/2016 Hydrocephalus - Obstructive hydrocephalus versus normal-pressure hydrocephalus. 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' Atrial fibrillation 10/30/19 17 Immunizations Immunization Administration Dates Next Due Influenza Seasonal Unspecified Formulation IM Family History Medical History Relation Name Comments Heart Attack Brother 1 Diabetes Brother 2 Cancer Father lung Heart Disease Father Diabetes Mother Heart Disease Mother Diabetes Sister Relation Name Status Comments Brother 1 Brother 2 Father Mother Sister Social History Tobacco Use Types Packs/Day Years Used Date Smoking Tobacco: Never Smokeless Tobacco: Never Tobacco Cessation:Counseling Given: No Alcohol Use Standard Drinks/Week Comments No 0 (1 standard drink = 0.6 oz pur e alcohol) Sex and Gender Information Value Date Recorded Sex Assigned at Not on file Legal Sex Male 9:00 AM CDT Gender Identity Not on file Sexual Orientation Not on file Last Filed Vital Signs Vital Sign Reading Time Taken Comments Blood Pressure 115/59 12/12/2020 11:14 AM CDT Pulse 85 12/12/2020 11:14 AM CDT Temperature 35.9 C (96.7 F) 12/12/2020 11:14 AM CDT Respiratory Rate 20 12/12/2020 11:1 4 AM CDT Oxygen Saturation 100% 12/12/2020 11: 14 AM CDT Inhaled Oxygen Concentration - - Weight 106.1 kg (233 lb 14.4 oz) 12/12/2020 4:33 AM CDT Height 188 cm (6' 2 ) 11/24/2020 2:50 PM CDT Body Mass Index 30.03 11/24/2020 2:50 PM CDT Plan of Treatment Health Maintenance Due Date Last Done Comments DIABETES ANNUAL FOOT EXAM 1974 DIABETES MICROALBUMIN ANNUAL SCREEN 1974 DTAP/TDAP/TD VACCINES (1 - Tdap) 1975 PNEUMOCOCCAL VACCINE 50+ YEA RS (1 of 2 - PCV) 1975 COLORECTAL SCREENING 2001 Colorectal Cancer Screening 2001 FIT-DNA Q 3 years 2001 FIT/FOBT Q 1 year 2001 Flex Sig/CT Colonography Q 5 years 2001 ZOSTER VACCINE (1 of 2) 2006 RSV VACCINE (60+ or ) (1 - Risk 60-74 years 1-dose series) 2016 LDL CHOLESTEROL ANNUAL 06/12/2017 06/12/2016 DIABETES ANNUAL RETINAL EXAM 05/08/2021, 05/08/2020, 05/08/2020, Additional history exists DIABETES HBA1C Q 6 MONTHS 05/26/20212020, 08/12/2017, 02/17/2016, Additional history exists INFLUENZA VACCINE (#1) 2025 02/18/2016 Medical Devices Implanted Type Area Spa Concierge Device Identifier Shelf Expiration Date Model / Serial / Lot 6f Powerline-12/01 Implanted:Qty: 1 on 12/01/2020 by Jannet White MD Catheter Right: Chest Wall [id number] 02/13/2024 [id number] / / [id number] Hemostatic Gelfoam Spng 12-7mm [id number] - Csc - Sna Implanted:Qty: 1 on 02/13/2016 by Marcelo Carter MD at [facility] Hemostatic Right: Frontal Lobe PFIZER- PHARM 08/12/2018 [id number] / NA / [id number] Hemostatic Gelfoam Powder 1gm [id number] - Sna Implanted:Qty: 1 on 02/13/2016 by Marcelo Carter MD at [facility] Hemostatic Right: Frontal Lobe PFI[employer]ER- PHARM 07/15/2018 [id number] / NA / [id number] Cath Ventricular Bactiseal [id number] - Sna Implanted:Qty: 1 on 02/13/2016 by Marcelo Carter MD at [facility] Shunt Right: Frontal Lobe [employer] 09/12/2016 [id number] / NA / [id number] Promus 3x12-11/12/2016 Implanted:10/15 (Quantity not on file) Stent Valve Strata Reg Programmable [id number] - Sna Implanted:Qty: 1 on 02/13/2016 by Marcelo Carter MD at [facility] Valve Right: Frontal Lobe [employer]- NEUROSURGERY 11/12/2018 [id number] / NA / [id number] Procedures Procedure Name Priority Date/Time Associated Diagnosis Comments HEMOGLOBIN A1C Stat 11/24/2020 2:57 PM CDT LIPID PANEL Routine 06/12/2016 11:07 AM WIPING RAG WASHER from Last 3 Months or Most Recently Relevant to Health Maintenance Results * (ABNORMAL) HEMOGLOBIN A1C (11/24/2020 2:57 PM CDT) HEMOGLOBIN A1C 11.3(H) <=5.6 % 11/27/2020 8:27 AM CDT [facility] EST. AVG GLUCOSE, A1C 278 mg/dL 11/27/2020 8:27 AM CDT [facility] Blood Venipuncture / Unknown 11/24/2020 2:57 PM CDT 11/24/2020 3:16 PM CDT Narrative [facility] - 11/27/2020 8:27 AM CDT HGB A1C INTERPRETATION NORMAL: <5.7% PRE-DIABETES: 5.7 - 6.4% DIABETES: 6.5% OR GREATER us Ryland Solorzano MD CHEMISTRY ORDERABLES Final Re sult [facility] [address] [place] [address] * (ABNORMAL) LIPID PANEL (06/12/2016 11:07 AM WIPING RAG WASHER) ABSTRACTED CHOLESTEROL 126 EXTERNAL LAB ABSTRACTED TRIGLYCERIDE 254(H) EXTERNAL LAB ABSTRACTED HDL 13(L) EXTERNAL LAB ABSTRACTED LDL CALCULATED 62 EXTERNAL LAB CHOLESTEROL <=200 mg/dL EXTERNAL LAB CHOLESTEROL EXTERNAL LAB TRIGLYCERIDE <=150 mg/dL EXTERNAL LAB TRIGLYCERIDE EXTERNAL LAB HDL 40 - 59 mg/dL EXTERNAL LAB HDL EXTERNAL LAB LDL CALCULATED <=100 mg/dL EXTERNAL LAB LDL CALCULATED EXTERNAL LAB CALCULATED LDL CHOLESTEROL mg/dL EXTERNAL LAB CALCULATED TOTAL CHOLESTEROL TO HDL RATIO EXTERNAL LAB CHOL/HDL RATIO EXTERNAL LAB VLDL-3 (REMNANT LIPO) mg/dL EXTERNAL LAB LIPID PANEL COMMENT EXTERNAL LAB RISK FACTOR EXTERNAL LAB RESULT COMMENT, CHEMISTRY EXTERNAL LAB Blood 06/12/2016 11:0 7 AM WIPING RAG WASHER us Kishore Murguia MD CHEMISTRY ORDERABLES Final Re sult EXTERNAL LAB from Last 3 Months or Most Recently Relevant to Health Maintenance [place] Advance Directives For more information, please contact: [phone] Documents on File Type Date Recorded Patient Pattern Illustrator Expl anation Advance Directive Living Will 02/12/2016 4:21 PM Advance Directive Living Will Advance Directive POA 02/12/2016 4:20 PM A dvance Directive POA Advance Directive POA 02/12/2016 10:03 AM Advance Directive POA * NO CPR (In Event of Cardiopulmonary Arrest) (Latest Code Status on File) Date Activated Date Inactivated Comments 11/25/2020 2:17 AM 12/12/2020 6:49 PM Question Answer Comments Mechanical Ventilation (for respiratory distress) - Invasive (i.e. intubation): No Mechanical Ventilation (for respiratory distress) - Non-Invasive (i.e. BiPAP, CPAP): Yes Cardioversion - (Allow prior to Cardiopulmonary Arrest): No Vasopressors - (Allow prior to Cardiopulmonary A rrest): No Inotropic Agents - (Allow prior to Cardiopulmona ry Arrest): No External Pacing - (Allow prior to Cardiopulmonar y Arrest): No Invasive Monitoring - (Allow prior to Cardiopulm onary Arrest): No * Full Code Date Activated Date Inactivated Comments 11/20/2020 8:38 PM 11/24/2020 2:45 PM * Full Code Date Activated Date Inactivated Comments 11/14/2020 11:00 AM 11/20/2020 7:13 PM * Default Full Code - Needs Discussion Date Activated Date Inactivated Comments 11/12/2020 1:31 PM 11/14/2020 11:00 AM * Full Code Date Activated Date Inactivated Comments 11/12/2016 12:01 PM 11/13/2016 12:01 PM Care Teams Manager Respiratory Care Relationship Specialty Start Date End Date Elaine Sutton MD [address] [place] [address] PCP - General Internal Medicine 04/30/17
--- OUTSIDE RECORDS SUMMARY | 2025-01-08 12:28 | XMS_ITS | Encounter Summary ---
Author Organization [facility] Address [address] [place] [address] Care Team Providers Care Torch Solderer Name Role Phone Elaine Sutton MD Primary Care Provider +1- [phone] Encounter Details Date Type Department Care Team (Latest Contact Info) Description 05/03/2020 Ancillary Orders [facility] Neurosurgery [address] [place] [phone] Marcelo Carter MD [address] [place] [phone] History of brain shunt Social History Tobacco Use Types Packs/Day Years Used Date Smoking Tobacco: Never Smokeless Tobacco: Never Alcohol Use Standard Drinks/Week Comments No 0 (1 standard drink = 0.6 oz pur e alcohol) Sex and Gender Information Value Date Recorded Sex Assigned at Not on file Legal Sex Male 9:00 AM CDT Gender Identity Not on file Sexual Orientation Not on file COVID-19 Exposure Response Date Recorded In the last month, have you been in contact with someone who was confirmed or suspected to have Coronavirus / COVID-19? No / Unsure 05/03/2020 10:54 AM TERRITORY SALES MANAGER documented as of this encounter Plan of Treatment Not on file documented as of this encounter Results * XR SKULL LESS THAN 4 VW (05/03/2020 2:30 PM TERRITORY SALES MANAGER) Anatomical Region Laterality Modality Head Computed Radiogr aphy 05/03/2020 2:30 PM TERRITORY SALES MANAGER Narrative 05/03/2020 2:43 PM TERRITORY SALES MANAGER Exam: XR SKULL LESS THAN 4 VW Date/Time of Exam: 05/03/2020 2:30 PM Reason For Exam: See Diagnosis. Diagnosis: History of brain shunt. Preliminary findings dictated by DANO Khan RPA. Personal supervision and final interpretation by Dr. Cash. Single oblique view of the calvaria is submitted for programmable shunt valve setting post MRI imaging. The Medtronic strata valve is set to P/L1.5. IMPRESSION As above. Procedure Note Sheldon Cash MD - 05/03/2020 Exam: XR SKULL LESS THAN 4 VW Date/Time of Exam: 05/03/2020 2:30 PM Reason For Exam: See Diagnosis. Diagnosis: History of brain shunt. Preliminary findings dictated by DANO Khan RPA. Personal supervision and final interpretation by Dr. Cash. Single oblique view of the calvaria is submitted for programmable shunt valve setting post MRI imaging. The Medtronic strata valve is set to P/L1.5. IMPRESSION As above. Marcelo Carter MD DIAGNOSTIC IMAGING ORDERA BLES Final Result documented in this encounter Visit Diagnoses Diagnosis History of brain shunt History of brain shunt documented in this encounter Additional Health Concerns Infection Onset Date Last Indicated Resolved Time R/O Respiratory 11/13/2020 11/13/2020 11/13/2020 3 :32 PM CDT R/O Respiratory 11/14/2020 11/14/2020 11/14/2020 3 :26 AM CDT R/O COVID-19 11/14/2020 11/14/2020 11/14/2020 10:1 0 AM CDT R/O COVID-19 11/24/2020 11/24/2020 11/24/2020 10:2 4 PM CDT COVID-19 11/24/2020 11/24/2020 12/17/2020 8:08 PM CDT documented as of this encounter Care Teams Torch Solderer Relationship Specialty Start Date End Date Elaine Sutton MD [address] [place] [id number] PCP - General Internal Medicine 04/30/17 documented as of this encounter
--- OUTSIDE RECORDS SUMMARY | 2025-01-08 12:28 | XMS_ITS | Encounter Summary ---
Author Organization [facility] Address [address] [place] [address] Care Team Providers Care Land Commissioner Name Role Phone Elaine Sutton MD Primary Care Provider +1- [phone] Encounter Details Date Type Department Care Team (Late st Contact Info) Description 08/10/2018 Ancillary Orders [facility] Neurosurgery [address] [place] [phone] Marcelo Carter MD [address] [place] [phone] Social History Tobacco Use Types Packs/Day Years [...] on file documented as of this encounter Visit Diagnoses Not on filedocumented [...] documented as of this encounter Care Teams Land Commissioner Relationship Specialty Start Date End Date Elaine Sutton MD [address] [place] [address] PCP - General Internal Medicine 04/30/17 documented as of this encounter
--- OUTSIDE RECORDS SUMMARY | 2025-01-08 12:28 | XMS_ITS | Clinical Summary ---
Author Organization [facility] Address [address] [place] [address] Phone Care Team Providers Care Manager Software Name Role Phone Elaine Sutton MD Primary Care Provider [phone]- [phone] Allergies Active Allergy Reactions Criticality Noted Date Comments Lorazepam Hypertension Medium 11/19/2020 Metformin Other (See Comments) High 01/09/2022 Procaine Dizziness Low 02/05/2016 Medications venlafaxine (EFFEXOR) 75 mg tablet Take 75 mg by mouth 3 times daily. 01/21/20 18 Active levETIRAcetam (KEPPRA) 750 mg TabletIndicatio ns:Tonic-clonic seizure disorder (CMS/HCC) TAKE ONE TABLET BY MOUTH TWICE DAILY 60 Tablet 5 07/13/19 21 Active nortriptyline (PAMELOR) 10 mg capsule TAKE THREE CAPSULES BY MOUTH DAILY AT BEDTIME 90 Capsule 0 05/09/20 20 Active ondansetron (ZOFRAN) 4 mg Tablet Take 1 Tablet (4 mg) by mouth every 6 hours as needed for Nausea/Emesis. 30 Tablet 2 10/04/19 20 Active empagliflozin (Jardiance) 10 mg tablet Take 1 Tablet by mouth daily. 3 01/19/20 19 Active liraglutide (Victoza 2-Sathya) 0.6 mg/0.1 mL (18 mg/3 mL) INJECT 1.2MG UNDER SKIN DAILY 5 01/25/20 19 Active lisinopriL (PRINIVIL) 2.5 mg tablet Take 1 Tablet by mouth daily. 0 11/30/19 19 Active Blood-Glucose Meter (OneTouch Ultra2 Meter) Kit USE DIRECTED 0 12/23/19 Active metoprolol tartrate (LOPRESSOR) 50 mg tablet Take 1 Tablet by mouth 2 times daily. 0 11/30/19 19 Active blood sugar diagnostic (OneTouch Ultra Blue Test Strip) Strip USE ONE STRIP TO CHECK SUGAR TWICE DAILY 3 01/25/20 Active levothyroxine 88 mcg tablet Take 1 Tablet by mouth daily. 6 01/25/20 Active lancets (One Touch Delica) 33 gauge USE TO CHECK BLOOD SUGAR TWICE DAILY 3 12/23/19 Active diltiaZEM (CARDIZEM) 90 mg tablet Take 90 mg by mouth 4 times daily. 01/07/20 Active Lidocaine 4 % Adhesive Patch, Medicated every 24 hours. 11/21/19 Active diltiaZEM (CARDIZEM CD) 360 mg Controlled Delivery 24 hour capsule Take 1 Capsule (360 mg) by mouth daily. 1 11/22/19 Active digoxin (LANOXIN) 125 mcg (0.125 mg) tablet Take 1 Tablet (125 mcg) by mouth daily. 11/22/19 Active enoxaparin (LOVENOX) 40 mg/0.4 mL injection Inject 0.4 mL (40 mg) by subcutaneous injection every 24 hours. 0 11/21/19 21 Active pantoprazole (PROTONIX) 40 mg Tablet, Delayed Release (E.C.) Take 1 Tablet (40 mg) by mouth daily. 11/21/19 Active bumetanide (BUMEX) 2 mg tablet Take 1 Tablet (2 mg) by mouth daily. 11/21/19 Active insulin lispro (HumaLOG) 100 unit/mL vial Inject 6 Units by subcutaneous injection 3 times daily with meals. 11/22/19 Active tamsulosin (FLOMAX) 0.4 mg capsule Take 1 Capsule (0.4 mg) by mouth daily after supper. 11/21/19 21 Active OLANZapine (ZyPREXA ZYDIS) 5 mg Tablet, Rapid Dissolve Take 1 Tablet (5 mg) by mouth 2 times daily. 1 12/13/19 Active insulin lispro (HumaLOG) 100 unit/mL pen [...] and greater = give and/or add 7 unitsCONTACT PROVIDER- If blood sugar greater than 250 mg/dL- If blood sugar greater than 180 mg/dL for two consecutive readings 15 mL 12/13/19 Active melatonin 3 mg Tablet Take 2 Tablets (6 mg) by mouth daily at bedtime. 12/13/19 Active magnesium citrate solution Take 296 mL by mouth 1 time daily as needed for Constipation. 12/13/19 Active venlafaxine (EFFEXOR) 37.5 mg tablet Take 2 Tablets (75 mg) by mouth daily. 12/13/19 Active insulin glargine (LANTUS) 100 unit/mL injection Inject 42 Units by subcutaneous injection 2 times daily. 3 mL 12/13/19 Active albuterol sulfate 90 mcg/Actuation inhaler Take 2 Puffs by inhalation every 6 hours as needed for Shortness of Breath. 8.5 Gram 12/13/19 Active insulin lispro (HumaLOG) 100 unit/mL pen syringe Inject 9 Units by subcutaneous injection 3 times daily with meals. 15 mL 12/13/19 Active bumetanide (BUMEX) 1 mg tablet Take 0.5 Tablets (0.5 mg) by mouth 2 times daily. 12/13/19 Active cyanocobalamin 1,000 mcg Tablet Take 1 Tablet (1,000 mcg) by mouth daily. 12/14/19 Active sennosides-docu sate sodium (SENNA-S) 8.6-50 mg tablet Take 1 Tablet by mouth 2 times daily. 12/13/19 Active enoxaparin (LOVENOX) 60 mg/0.6 mL injection Inject 0.5 mL (50 mg) by subcutaneous injection every 12 hours. To be continued until as determined appropriate per [facility] physician 0 12/13/19 Active morphine (ROXANOL) 100 mg/5 mL (20 mg/mL) SolutionIndicat ions:Acute on chronic respiratory failure with hypoxia (CMS/HCC) Take 0.125 mL (2.5 mg) by mouth every 6 hours. Max Daily Amount: 10 mg 15 mL 0 12/13/19 21 Active insulin lispro (HumaLOG) 100 unit/mL pen syringe Inject 0-4 Units by subcutaneous injection daily at bedtime. * MUST be given at least 4 hours after last insulin dose.Medium-Dose Bedtime Correction: Less than or equal to 175 = no correctional insulin 176 - 200 = give and/or add 1 unit 201 - 250 = give and/or add 2 units 251 - 299 = give and/or add 3 units 300 and greater = give and/or add 4 unitsCONTACT PROVIDER- If blood sugar greater than 250 mg/dL- If blood sugar greater than 180 mg/dL for two consecutive readings 15 mL 12/13/19 21 Active predniSONE (DELTASONE) 10 mg tablet 40 mg for 10 days, then 30mg for 1 week, then 20 mg for 5 days then 10mg for 5 days, then off. 80 Tablet 0 12/13/19 21 Active multivitamin,ca lcium,minerals, iron,folic acid (THERA-M,THERA- M PLUS) 9 mg iron-400 mcg Tablet Take 1 Tablet by mouth daily. 12/14/19 21 Active aspirin (WOJCIECH CHEWABLE) 81 mg Tablet, Chewable Take 81 mg by mouth daily. 10/31/19 17 Active metFORMIN (GLUCOPHAGE XR) 500 mg Extended Release 24 hour tablet Take 500 mg by mouth 2 times daily with meals. 02/05/20 16 Active pravastatin (PRAVACHOL) 40 mg tablet Take 40 mg by mouth late in the day. 05/01/20 16 Active diazePAM (Valium) 5 mg tabletIndicatio ns:Claustrophob ia Take 1 Tablet (5 mg) by mouth see administration instructions. Take 1 tab 30 minutes prior to procedure. 1 Tablet 02/16/20 24 Active methylPREDNISol one (MEDROL DOSPACK) 4 mg Tablets, Dose Pack Take as directed 21 Tablet 04/11/20 24 Active fluconazole (DIFLUCAN) 150 mg tablet Take 1 Tablet by mouth daily. 03/08/20 24 Active glucagon 1 mg/0.2 mL Auto-Injector Inject by subcutaneous injection. 10/07/19 22 Active Tresiba FlexTouch U-200 200 unit/mL (3 mL) pen syringe INJECT 90 UNITS UNDER SKIN DAILY 05/10/20 24 Active Linzess 145 mcg capsule Take 145 mcg by mouth daily in the morning. 05/10/20 Active pregabalin (LYRICA) 100 mg Capsule Take 1 Capsule by mouth 2 times daily. 05/10/20 Active rosuvastatin (CRESTOR) 20 mg tablet Take 1 Tablet by mouth daily. 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 02/10/2016 03/10/2016 Overview (10/10/2020): Pes cavus with absent reflexes and familial history of 'high arches' Atrial fibrillation 10/30/19 17 Encounters Date Type Department Care Team Description 12/28/2024 External Device Data [facility] ABSTRACTION Provider, Abstract 12/27/2024 External Device Data [facility] ABSTRACTION Provider, Abstract 11/15/2024 External Device Data [facility] ABSTRACTION Provider, Abstract 11/03/2024 External Device Data [facility] ABSTRACTION Provider, Abstract 11/02/2024 External Device Data [facility] ABSTRACTION Provider, Abstract 11/01/2024 External Device Data [facility] ABSTRACTION Provider, Abstract from Last 3 Months Immunizations Immunization Administration Dates Next Due Influenza Seasonal Unspecified Formulation IM Family History Medical History Relation Name Comments Diabetes Brother 1 Heart Attack Brother 2 Cancer Father lung Heart Disease [...] on file Legal Sex Male 1:48 AM COLORER Gender Identity Not on file Sexual Orientation Not on file Last Filed Vital Signs Vital Sign Reading Time Taken Comments Blood Pressure 151/74 09/07/2024 8:56 AM CDT Pulse 73 09/07/2024 8:56 AM CDT Temperature 35.8 C (96.4 F) 12/12/2020 7:32 AM CDT Respiratory Rate 20 09/07/2024 8:56 AM CDT Oxygen Saturation 94% 09/07/2024 8:56 AM CDT Inhaled Oxygen Concentration - - Weight 115.2 kg (254 lb) 05/25/2024 1:48 PM COLORER Height 188 cm (6' 2 ) 05/25/2024 1:48 PM COLORER Body Mass Index 32.61 05/25/2024 1:48 PM COLORER Plan of Treatment Health Maintenance Due Date [...] 2016 LDL CHOLESTEROL ANNUAL 06/12/2017 06/12/2016 DIABETES HBA1C Q 6 MONTHS 02/15/20222021, 11/24/2020, 11/24/2020, Additional history exists DIABETES ANNUAL RETINAL EXAM 04/03/2022, 04/03/2021, 04/03/2021, Additional history exists INFLUENZA VACCINE (#1) 2025 04/13/2023, 2015 Medical Devices Implanted Type Area Team Lead Device Identifier Shelf Expiration Date Model / Serial / Lot 6f Powerline-12/01 Implanted:Qty: 1 on 12/01/2020 by Jannet White MD Catheter Right: Chest Wall [id number] 02/13/2024 [id number] / / [id number] Hemostatic Gelfoam Powder 1gm [id number] - Sna Implanted:Qty: 1 on 02/13/2016 by Marcelo Carter MD Hemostatic Right: Frontal Lobe PFIZER- PHARM 07/15/2018 [id number] / NA / [id number] Hemostatic Gelfoam Spng 12-7mm [id number] - Csc - Sna Implanted:Qty: 1 on 02/13/2016 by Marcelo Carter MD Hemostatic Right: Frontal Lobe [employer] 08/12/2018 [id number] / NA / [id number] Cath Ventricular Bactiseal [id number] - Sna Implanted:Qty: 1 on 02/13/2016 by Marcelo Carter MD Shunt Right: Frontal Lobe [employer] 09/12/2016 [id number] / NA / [id number] Promus 3x12-11/12/2016 Implanted:10/15 (Quantity not on file) Stent Valve Strata Reg Programmable [id number] - Sna Implanted:Qty: 1 on 02/13/2016 by Marcelo Carter MD Valve Right: Frontal Lobe [employer]- NEUROSURGERY 11/12/2018 [id number] / NA / [id number] Procedures Procedure Name Priority Date/Time Associated Diagnosis Comments HEMOGLOBIN A1C Routine 11/24/2020 2:57 PM CDT LIPID PANEL Routine 06/12/2016 11:07 AM COLORER from Last 3 Months or Most Recently Relevant to Health Maintenance Results * (ABNORMAL) HEMOGLOBIN A1C (11/24/2020 2:57 PM CDT) HEMOGLOBIN A1C 11.3(H) <=5.6 % 11/27/2020 8:27 AM CDT [facility] EST. AVG GLUCOSE, A1C 278 mg/dL 11/27/2020 8:27 AM CDT [facility] Blood Venipuncture / Unknown 11/24/2020 2:57 PM CDT 11/24/2020 3:16 PM CDT Narrative [facility] - 11/27/2020 8:27 AM CDT HGB A1C INTERPRETATION NORMAL: <5.7% PRE-DIABETES: 5.7 - 6.4% DIABETES: 6.5% OR GREATER us Ryland Solorzano MD CHEMISTRY ORDERABLES Final Re sult Performing Organization Address [facility]/ZIP Co de Phone Number [facility] [address] [place] [address] [facility] CLIA# [id number] [address] [place] [address] * (ABNORMAL) LIPID PANEL (06/12/2016 11:07 AM COLORER) ABSTRACTED CHOLESTEROL 126 06/13/2016 9:08 AM COLORER EXTERNAL LAB ABSTRACTED TRIGLYCERIDE 254(H) 06/13/2016 9:08 AM COLORER EXTERNAL LAB ABSTRACTED HDL 13(L) 06/13/2016 9:08 AM COLORER EXTERNAL LAB ABSTRACTED LDL CALCULATED 62 06/13/2016 9:08 AM COLORER EXTERNAL LAB CHOLESTEROL 06/13/2016 9:08 AM COLORER EXTERNAL LAB CHOLESTEROL 06/13/2016 9:08 AM COLORER EXTERNAL LAB TRIGLYCERIDE 06/13/2016 9:08 AM COLORER EXTERNAL LAB TRIGLYCERIDE 06/13/2016 9:08 AM COLORER EXTERNAL LAB HDL 06/13/2016 9:08 AM COLORER EXTERNAL LAB HDL 06/13/2016 9:08 AM COLORER EXTERNAL LAB LDL CALCULATED 06/13/2016 9:08 AM COLORER EXTERNAL LAB LDL CALCULATED 06/13/2016 9:08 AM COLORER EXTERNAL LAB CALCULATED LDL CHOLESTEROL 06/13/2016 9:08 AM COLORER EXTERNAL LAB CALCULATED TOTAL CHOLESTEROL TO HDL RATIO 06/13/2016 9:08 AM COLORER EXTERNAL LAB CHOL/HDL RATIO 06/13/2016 9:08 AM COLORER EXTERNAL LAB VLDL-3 (REMNANT LIPO) 06/13/2016 9:08 AM COLORER EXTERNAL LAB LIPID PANEL COMMENT 06/13/2016 9:08 AM COLORER EXTERNAL LAB RISK FACTOR 06/13/2016 9:08 AM COLORER EXTERNAL LAB RESULT COMMENT, CHEMISTRY 06/13/2016 9:08 AM COLORER EXTERNAL LAB Blood 06/12/2016 11:0 7 AM COLORER Narrative EXTERNAL LAB - 06/13/2016 9:08 AM COLORER This order was created through External Result Entry us Kishore Murguia MD CHEMISTRY ORDERABLES Final Re sult Performing Organization Address [facility]/ZIP Co de Phone Number EXTERNAL LAB from Last 3 Months or Most Recently Relevant to Health Maintenance Insurance MEDICAID [place] MEDICARE PART A AND B Advance Directives For more information, please contact: [phone] Documents on File Type Date Recorded 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
--- OUTSIDE RECORDS SUMMARY | 2025-01-08 12:28 | XMS_ITS ---
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
[2025-01-08 12:41] VITALS: BP 110/69; PULSE 72; RESP 16; TEMP 36.3; O2SAT 97
--- NOTE | 2025-01-08 13:09 | W.ED.SKABFB ---
HPI - Skin/Abscess/Foreign Bdy General: Chief complaint: Skin/Abscess/Foreign Body Stated complaint: PICC line bleeding Time Seen by Provider: 01/08/25 12:52 History of Present Illness: Michael Gutierrez presents to the emergency department with concerns about his mid line that was last accessed yesterday morning. The patient reports that he has noticed some bleeding from the central line site. He states, I'm feeling a little bit of stuff running out, and believes it is bleeding slightly. The patient does not report any significant pain or discomfort associated with the central line site. He mentions that the line flushed properly when last used, and fluids were able to be administered without issue. The patient does not express any other complaints or symptoms during this visit. Related Data Previous Rx's ?Medication ?Instructions ?Recorded clonidine HCl 0.1 mg tablet 0.1 mg PO Q12H #60 tabs 11/23/23 Held on 02/08/24. Instructions: Hold due to blood pressure Disposable nebulizer circuit #1 ea 02/08/24 syringe with needle 3 mL 22 gauge #1 ea 09/19/24 x 1 cyanocobalamin (vitamin B-12) 1,000 mcg IM .monthly #1 mL 12/08/24 1,000 mcg/mL injection solution diltiazem HCl 60 mg 60 mg PO BID #60 caps 12/08/24 capsule,extended release 12 hr insulin degludec 200 unit/mL (3 90 unit (0.45 mL) SUBCUT DAILY #18 12/08/24 mL) subcutaneous pen (Tresiba mL FlexTouch U-200 insulin) levofloxacin 500 mg tablet 500 mg PO DAILY #10 tabs 12/08/24 levothyroxine 175 mcg tablet 175 mcg PO DAILY@0600 #30 tabs 12/08/24 linaclotide 145 mcg capsule 145 mcg PO QAM #30 caps 12/08/24 (Linzess) lisinopril 10 mg tablet 10 mg PO DAILY #30 tabs 12/08/24 metoprolol tartrate 25 mg tablet 25 mg PO BID #60 tabs 12/08/24 pregabalin 100 mg capsule (Lyrica) 100 mg PO BID #60 caps 12/08/24 rosuvastatin 20 mg tablet 20 mg PO DAILY #30 tabs 12/08/24 semaglutide 0.25 mg or 0.5 mg (2 0.5 mg (0.736 mL) SUBCUT .week #3 12/08/24 mg/3 mL) subcutaneous pen injector mL (Ozempic) tamsulosin 0.4 mg capsule 0.4 mg PO BID@0600,1700 #60 caps 12/08/24 venlafaxine 75 mg capsule,extended 75 mg PO DAILY@0600 #30 caps 12/08/24 release 24 hr insulin lispro 100 unit/mL See Rx Instructions SUBCUT TID #15 12/19/24 subcutaneous pen (Humalog KwikPen mL (U-100) Insulin) pen needle, diabetic 32 gauge x #100 ea 12/19/24/32 (Lawanda Pen Needle) blood-glucose sensor (Dexcom G7 #9 ea 12/23/24 Sensor device) blood-glucose,residential installer,cont #1 ea 12/23/24 (Dexcom G7 Rn Manager) Allergies Allergy/AdvReac Type Severity Reaction Status Date / Time procaine (From Novocain) Allergy Unknown Verified 12/22/24 14:20 metformin AdvReac Severe ADR-Heartbu Verified 12/22/24 14:20 early morning babysitter of Systems General: Reports: 10 or more systems reviewed and unremarkable except in HPI and below PFSH ED PFSH: Medical History (Updated 01/08/25 @ 13:20 by Nadeem Sheth DO) Hyperlipemia, mixed History of seizure Anxiety with depression Urinary hesitancy DDD (degenerative disc disease), lumbar Dietary noncompliance Osteoarthritis of left hip Essential hypertension Adult onset hypothyroidism Diabetes mellitus with hyperglycemia, with long-term current use of insulin Surgical History History of heart artery stent 2019 History of brain shunt 2016 Family History Mother , at age 52 Diabetes Father , at age 64 Cancer lung Social History Smoking and tobacco/nicotine status: never used tobacco/nicotine Second hand smoke exposure: No Alcohol intake: never Substance/Drug Use: never Adopted: No Caregiver/support person: No Lives independently: Yes Household members: children Housing: House Marital status: Number of children: 3 Number of grandchildren: 5 Highest education level completed: 6th Grade service: No Current occupational status: retired Do you think of yourself as: Straight/Heterosexual Current gender identity: Male Physical Exam Const: COMMON NORMALS: no acute distress, patient oriented x3, healthy appearing, alert and well nourished HENMT: COMMON NORMALS: normocephalic HEAD & SCALP: normocephalic Eye: COMMON NORMALS: EOMs intact bilaterally Neck/C-Spine: COMMON NORMALS: full ROM and supple Resp: COMMON NORMALS: normal respiratory effort, No retractions and clear to auscultation bilaterally AUSCULTATION: clear to auscultation bilaterally Cardio: COMMON NORMALS: regular rate, regular rhythm, No gallops present (Cardio) and No murmurs present (Cardio) RATE: regular rate RHYTHM: regular rhythm GI: COMMON NORMALS: Soft to palpation and non-tender PALPATION: Yes Soft to palpation Extremity: GENERAL: Yes normal exam except as noted Neuro: COMMON NORMALS: patient oriented x3 SENSORIUM/ORIENTATION: Yes alert Skin: COMMON NORMALS: no rashes or lesions noted GENERAL SKIN EXAM: no rashes or lesions noted OTHER: Small amount of dried blood noted around the insertion site and under the Tegaderm for the midline Course Vital Signs: Vital signs: Vital Signs Temperature 97.3 F L 01/08/25 12:41 Pulse Rate 68 01/08/25 13:27 Respiratory Rate 16 01/08/25 12:41 Blood Pressure 123/56 01/08/25 13:27 Pulse Oximetry 99 01/08/25 13:27 Oxygen Delivery Me thod Room Air 01/08/25 12:41 MDM - Skin/Abscess/Foreign Bdy Medicial Decision Making 69-year-old male present to the emergency department for evaluation of blood coming out of his midline. On physical exam there was some dried crusted blood around the insertion site as well as scant amount under the Tegaderm. No signs of redness or infection. Nurse was able to flush with 210 mL flushes without any extravasation of fluid. Reassurance was provided to the patient and his son. Return precautions were discussed and the patient was discharged home in stable condition No radiology studies performed this visit Discharge Plan Discharge Patient Disposition: Home Clinical Impression: Bleeding at insertion site Condition: Stable Prescriptions: No Action clonidine HCl 0.1 mg tablet 0.1 mg PO Q12H Qty: 60 2RF levofloxacin 500 mg tablet 500 mg PO DAILY Qty: 10 0RF Ozempic 0.25 mg or 0.5 mg (2 mg/3 mL) pen injector 0.5 mg SUBCUT .week Qty: 3 2RF cyanocobalamin (vitamin B-12) 1,000 mcg/mL solution 1,000 mcg IM .monthly Qty: 1 2RF diltiazem HCl 60 mg capsule,extended release 12 hr 60 mg PO BID Qty: 60 2RF Tresiba FlexTouch U-200 200 unit/mL (3 mL) insulin pen 90 unit SUBCUT DAILY Qty: 18 2RF levothyroxine 175 mcg tablet 175 mcg PO DAILY@0600 Qty: 30 2RF Linzess 145 mcg capsule 145 mcg PO QAM Qty: 30 2RF lisinopril 10 mg tablet 10 mg PO DAILY Qty: 30 2RF metoprolol tartrate 25 mg tablet 25 mg PO BID Qty: 60 2RF Rx Instructions: notice 25mg pill do not brake pregabalin [Lyrica] 100 mg capsule 100 mg PO BID Qty: 60 2RF rosuvastatin 20 mg tablet 20 mg PO DAILY Qty: 30 2RF tamsulosin 0.4 mg capsule 0.4 mg PO BID@0600,1700 Qty: 60 2RF venlafaxine 75 mg capsule,extended release 24hr 75 mg PO DAILY@0600 Qty: 30 2RF (DME) Dexcom G7 Sensor Device See Rx Instructions .ROUTE .MEDSUPPLY Qty: 9 2RF Rx Instructions: change every 10 days ([facility]) Dexcom G7 Rn Manager Misc See Rx Instructions .ROUTE .MEDSUPPLY Qty: 1 0RF Rx Instructions: As directed ([facility]) Disposable nebulizer circuit See Rx Instructions .ROUTE .MEDSUPPLY Qty: 1 0RF Rx Instructions: As directed ([facility]) syringe with needle 3 mL 22 gauge x 1 syringe See Rx Instructions .ROUTE .MEDSUPPLY Qty: 1 2RF Rx Instructions: As directed insulin lispro [Humalog KwikPen Insulin] 100 unit/mL insulin pen See Rx Instructions SUBCUT TID Qty: 15 0RF Rx Instructions: subcutaneously three times daily; 150-199 mg/dL=4U 200-249 mg/dL=6U 250-299 mg/dL=8U 300-349 mg/dL=10U >349 mg/dL=12U (DME) pen needle, diabetic [Lawanda Pen Needle] 32 gauge x 5/32 needle See Rx Instructions .Route Qty: 100 0RF Rx Instructions: USE TID As directed Discharge Orders: Discharge ED (Routine); Ordered 01/08/25 Ordered By: Nadeem Law Referrals: Meagan Tobar MD [Primary Care Provider, Family Practice] Discharge Diet: Advance as tolerated Discharge Activity: Resume usual activity Patient Instructions: Opioid Safety, Pain Management, Patient Portal & Rafa Instructions Activity Restrictions/Additional Instructions: Please follow-up with your primary care provider needed for persistent symptoms. Please return to the emergency department for any new or worsening symptoms Print Language: Turkmen Coding Level of Care Code ED Overhauler Helper for Latoya Avina
[2025-01-08 13:27] VITALS: BP 123/56; PULSE 68; O2SAT 99
== END 2025-01-08 13:27 | disposition home or self-care (01) ==
PROVIDERS: Emergency Provider General Practice; PCP Family Medicine
DX: T82.838A Hemorrhage due to vascular prosthetic devices, implants and grafts, initial encounter (principal); X58.XXXA Exposure to other specified factors, initial encounter; Z79.4 Long term (current) use of insulin; E11.9 Type 2 diabetes mellitus without complications; E78.2 Mixed hyperlipidemia; I10 Essential (primary) hypertension
CPT/HCPCS: 99282

== ENCOUNTER → 2025-01-11 07:54 | Outpatient (BNVA) | payer MEDICARE, MEDICAID, SELFPAY | PROVIDERS: PCP Family Medicine; Visit Provider Thoracic Surgery (Cardiothoracic Vascular Surgery) | DX: E11.52 Type 2 diabetes mellitus with diabetic peripheral angiopathy with gangrene (principal); E11.621 Type 2 diabetes mellitus with foot ulcer; L97.511 Non-pressure chronic ulcer of other part of right foot limited to breakdown of skin | CPT/HCPCS: 87070; 87176; 87205; 97597; A6197 ==

== ENCOUNTER → 2025-01-25 12:49 | Outpatient (BNVA) | payer MEDICARE, MEDICAID, SELFPAY | PROVIDERS: PCP Family Medicine; Referring Provider Nurse Practitioner; Visit Provider Internal Medicine Cardiovascular Disease | DX: R07.9 Chest pain, unspecified (principal) | CPT/HCPCS: 87070; 87176; 87205; 93005; 97597 ==

== ENCOUNTER 2025-01-30 09:59 | Outpatient (CLI) | payer MEDICARE, MEDICAID, SELFPAY ==
[2025-01-30 10:27] VITALS: BMI 32.5
--- NOTE | 2025-01-30 10:27 | ECG_ITS ---
[facility] Test Date: 2025-01-30 Pat Name: Michael Gutierrez Department: Room: Gender: Male Master [employer]: : 1955 Requested By: Glenn Myers Order Number: [id number] Reading MD: GLENN MYERS Interpretive Statements Lung unchanged pre/post procedure; Intraprocedure shortess of breath; Symptoms resoled by discharge NOTE: Please note that this is the electrocardiogram portion of the Lexiscan/Sestamibi stress test. The perfusion scan will be documented separately. DATA: Baseline heart rate was 68 beats per minute. Baseline blood pressure was 143/72 millimeters of mercury. Target heart rate was 152. Maximum heart rate achieved was 82. which was 53% of the predicted target heart rate. Maximum blood pressure was 159/78 millimeters of mercury. The reason for ending the test was completion of the protocol. The patient did not experience any symptoms. ELECTROCARDIOGRAM: BASELINE: Sinus rhythm. Normal axis. Otherwise, no ST-T changes suggestive of ischemia noted. Frequent PVCs. EXERCISE: After Lexiscan injection, no ST-T changes suggestive of ischemic noted. Frequent PVCs noted CONCLUSION: Please note due to baseline abnormality of the EKG specificity and sensitivity of the EKG portion of LexiScan MIBI stress test will be low 1. EKG not suggestive of ischemia 2. Lexiscan injection unremarkable. 3. Perfusion scan will be documented separately. Electronically Signed On 02-25-2025 13:55:17 CDT by GLENN MYERS [email or web address]
--- NOTE | 2025-01-30 10:28 | NMCV_ITS ---
NM james perf SPECT r/s* [id number] Matt Michael Age: 69 Gender: M : 1955 Exam Date: 01/30/2025 11:16 Ordering Phys: Glenn Bonner MD ([email or web address]) Technologist: JOSUE Ramirez Exam Location: [facility] Indications: cp STRESS TEST Please [facility] for [facility] IMAGE PROTOCOL Rest/Stress 1 Lexiscan Day Radiopharmaceutical Dose (mCi) Administration Site Administered by Rest: Tc-99m 10.6 IV JOSUE Olson Sestamibi Stress:Tc-99m 33 IV JOSUE Ramirez Sestamikatty Rest: 30-Jan-2025 60 Discovery 630 Stress: 30-Jan-2025 30 Discovery 630 0.4mg Lexiscan. Images obtained in supine and prone position. SPECT RESULTS Technical Quality: Good Raw Data Analysis: Normal Image Corrections: No attenuation or motion correction applied Summed Stress Score: 7 Summed Rest Score: 8 Summed Difference Score: 1 PERFUSION FINDINGS Medium sized area of fixed perfusion defect noted in mid to distal anteroseptal wall suggestive of old myocardial infarction without ischemia. Medium sized area of fixed perfusion defect noted in basa to mid inferior wall suggestive of old myocardial infarction. Medium sized area of fixed perfusion defect noted in mid to distal inferior wall suggestive of old myocardial infarction. This study is negative for ischemia. 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 FUNCTIONAL RESULTS (calculated via Gated SPECT) Stress Image LV EF (%): 35 Stress EDV (mL):228 TID: 1.03 Stress ESV (mL):149 FUNCTIONAL FINDINGS: Global hypokinesis. Severely depressed left ventricle ejection fraction IMPRESSIONS Medium sized area of fixed perfusion defect noted in mid to distal anteroseptal wall suggestive of old myocardial infarction without ischemia. Medium sized area of fixed perfusion defect noted in basa to mid inferior wall suggestive of old myocardial infarction. Medium sized area of fixed perfusion defect noted in mid to distal inferior wall suggestive of old myocardial infarction. This study is negative for ischemia. 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 Glenn Bonner MD (Electronically Signed) Final Date: 30 January 2025 19:38 S
[2025-01-30 12:05] VITALS: BP 148/77; PULSE 75
== END 2025-01-30 10:00 | disposition home or self-care (01) ==
LOC: CDL 10:02
PROVIDERS: PCP Family Medicine; Visit Provider Internal Medicine Cardiovascular Disease
DX: R07.9 Chest pain, unspecified (principal); I49.9 Cardiac arrhythmia, unspecified; R93.1 Abnormal findings on diagnostic imaging of heart and coronary circulation
CPT/HCPCS: 36415; 78452; 93017; 96374; A9500; J2785

== ENCOUNTER → 2025-02-01 08:35 | Outpatient (BNVA) | payer MEDICARE, MEDICAID, SELFPAY | PROVIDERS: PCP Family Medicine; Visit Provider Thoracic Surgery (Cardiothoracic Vascular Surgery) | DX: E11.52 Type 2 diabetes mellitus with diabetic peripheral angiopathy with gangrene (principal); E11.621 Type 2 diabetes mellitus with foot ulcer; L97.416 Non-pressure chronic ulcer of right heel and midfoot with bone involvement without evidence of necrosis | CPT/HCPCS: 11044; 87070; 87176; 87205 ==

== ENCOUNTER → 2025-02-02 09:39 | Outpatient (BNVA) | payer MEDICARE, MEDICAID, SELFPAY | PROVIDERS: PCP Family Medicine; Visit Provider Podiatrist Foot & Ankle Surgery | DX: E11.621 Type 2 diabetes mellitus with foot ulcer (principal); L97.514 Non-pressure chronic ulcer of other part of right foot with necrosis of bone; E11.65 Type 2 diabetes mellitus with hyperglycemia; Z79.4 Long term (current) use of insulin | CPT/HCPCS: 99204 ==

== ENCOUNTER 2025-02-03 10:59 | Day surgery (SDC) | payer MEDICARE, MEDICAID, SELFPAY ==
[2025-02-03] VITALS (7 sets, daily range): BP systolic 108–173; BP diastolic 63–80; PULSE 59–81; RESP 12–18; TEMP 36.1–36.3; O2SAT 95–97; BMI 32.1
--- NOTE | 2025-02-03 11:46 | ANES.PREANE2 ---
Pre-Anesthetic Assessment Height/Weight: Height 1.88 m Weight 113.398 kg Temp Pulse Resp BP Pulse Ox O2 Del Method 97.2 F L 65 18 173/80 97 Room Air 02/03/25 11:26 02/03/25 11:26 02/03/25 11:26 02/03/25 11:26 02/03/25 11:02/03/25 11:26 Preop Diagnosis: Osteomyelitis right foot Operation Date: 02/03/25 12:45 Proposed Procedures p Incision of Bone Cortex RIGHT Foot(Right) - Saulo Yoder DPM Familial anesthetic complications: None Was Beta Ruben taken within 24 hours: Yes Was Clonidine taken within 24 hours: N/A Last intake: Intake Last Liquid Date 02/02/25 Last Solid Date 02/02/25 Social No alcohol and No tobacco Exam alert, oriented x 3, clear to auscultation bilaterally and regular rate & rhythm Airway Mallampati: Class II Dentition: false CV/HEM Coronary Artery Disease Metabolic Diabetes Mellitus, Hyperlipidemia and Morbid Obesity Neuropsych glioma, charcot marietooth Anesthetic Plan ASA status: 4 Anesthesia: MAC Risk of > 500 ml blood loss (7ml/kg in children): No Medications/Allergies Home Medications ?Medication ?Instructions ?Recorded ?Confirmed ?Last Taken ?Type Disposable nebulizer circuit #1 ea 02/08/24 02/02/25 Unknown Rx syringe with needle 3 mL 22 gauge #1 ea 09/19/24 02/02/25 Unknown Rx x 1 rosuvastatin 20 mg tablet 20 mg PO DAILY #30 tabs 12/08/24 02/02/25 02/02/25 Rx tamsulosin 0.4 mg capsule 0.4 mg PO BID@0600,1700 #60 caps 12/08/24 02/02/25 02/02/25 Rx Held on 01/10/25. Instructions: Toxicity pen needle, diabetic 32 gauge x #100 ea 12/19/24 02/02/25 Unknown Rx 5/32 (Lawanda Pen Needle) blood-glucose sensor (Dexcom G7 #9 ea 12/23/24 02/02/25 Unknown Rx Sensor device) blood-glucose,formulation chemist,cont #1 ea 12/23/24 02/02/25 Unknown Rx (Dexcom G7 Global Director Air And Climate Change) cyanocobalamin (vitamin B-12) 1,000 mcg IM .monthly #1 mL 01/20/25 02/02/25 Unknown Rx 1,000 mcg/mL injection solution diltiazem HCl 60 mg 60 mg PO BID #60 caps 01/20/25 02/02/25 02/02/25 Rx capsule,extended release 12 hr insulin degludec 200 unit/mL (3 90 unit (0.45 mL) SUBCUT DAILY #18 01/20/25 02/02/25 02/02/25 Rx mL) subcutaneous pen (Tresiba mL FlexTouch U-200 insulin) insulin lispro 100 unit/mL See Rx Instructions SUBCUT TID #15 01/20/25 02/02/25 Unknown Rx subcutaneous pen (Humalog KwikPen mL (U-100) Insulin) levothyroxine 175 mcg tablet 175 mcg PO DAILY@0600 #30 tabs 01/20/25 02/02/25 02/02/25 Rx lisinopril 10 mg tablet 10 mg PO DAILY #30 tabs 01/20/25 02/02/25 02/02/25 Rx metoprolol tartrate 25 mg tablet 25 mg PO BID #60 tabs 01/20/25 02/02/25 02/02/25 Rx pregabalin 100 mg capsule (Lyrica) 100 mg PO BID #60 caps 01/20/25 02/02/25 02/02/25 Rx semaglutide 0.25 mg or 0.5 mg (2 0.5 mg (0.736 mL) SUBCUT .week #3 01/20/25 02/02/25 01/11/25 Rx mg/3 mL) subcutaneous pen injector mL (Ozempic) venlafaxine 75 mg capsule,extended 75 mg PO DAILY@0600 #30 caps 01/20/25 02/02/25 02/02/25 Rx release 24 hr magnesium oxide 400 mg (241.3 mg 400 mg PO DAILY #90 tabs 01/25/25 02/02/25 02/02/25 Rx magnesium) tablet Allergies Allergy/AdvReac Type Severity Reaction Status Date / Time procaine (From Novocain) Allergy Unknown Verified 02/02/25 09:40 metformin AdvReac Severe ADR-Heartbu Verified 02/02/25 09:40 rn Current Medications Generic Name Dose Route Start Last Admin Trade Name Freq PRN Reason Stop Dose Admin Sodium Chloride 1,000 mls @ 30 mls/hr 02/03/25 11:15 02/03/25 11:39 Sodium Chloride 0.9% IV 02/04/25 11:14 30 mls/hr .Q24H EVER Administration PFSH Anesthesia Medical History (Updated 02/02/25 @ 10:48 by Saulo Yoder DPM) Cognitive decline Hydrocephalus has 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 Comer Chronic back pain greater than 3 months duration on Lyrica; has had VIVEK Open wound of right foot sees wound clinic Encounter to establish care Hyponatremia Vitamin B12 deficiency History of seizure had one seizure related to brain tumor/shunt Seizure cerebral Hyperlipemia, mixed Anxiety with depression Urinary hesitancy DDD (degenerative disc disease), lumbar has had VIVEK in [facility] Dietary noncompliance Osteoarthritis of left hip Essential hypertension Adult onset hypothyroidism Diabetes mellitus with hyperglycemia, with long-term current use of insulin Surgical History Status post PICC central line placement History of heart artery stent 2019; [facility]; one stent History of brain shunt 2017; done at [facility] and sees neurosurgeon there for f/u for brain tumor Family History Mother , at age 52 Diabetes Chronic kidney disease (CKD) of kidney failure due to diabetes Father , at age 64 Cancer lung Other CAD (coronary artery disease) Diabetes mellitus, type 2 Social History Smoking and tobacco/nicotine status: never used tobacco/nicotine Second hand smoke exposure: No Alcohol intake: never Substance/Drug Use: never Adopted: No Caregiver/support person: No Lives independently: Yes Household members: other Details: lives with son and his gf and his kids Housing: House Marital status: Number of children: 3 Number of grandchildren: 5 Highest education level completed: 6th Grade service: No Current occupational status: retired 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
[2025-02-03 11:55] LABS: Anion Gap 13.0 (5-19); Blood Urea Nitrogen 19 mg/dL (8-23); Calcium 8.8 mg/dL (8.5-10.5); Carbon Dioxide 24 mmol/L (22-29); Chloride 106 mmol/L (98-107); Creatinine Clr Calc Pharmacy 118.3490; Glucose 132 mg/dL (65-115); Osmolality Calculated 292 mOsm/kg (285-295); Potassium 4.0 mmol/L (3.5-5.1); Sodium 139 mmol/L (136-145)
--- NOTE | 2025-02-03 12:00 | W.PM.OPSUD ---
Surgery/Procedure H&P Update DATE OF PROCEDURE: February 03, 2025 DATE H&P PERFORMED: 02/02/25 H&P UPDATE INFORMATION: I have reviewed H&P completed within last 30 days, I have examined patient prior to procedure, No changes to prior documentation and Risks and benefits of the procedure reviewed PREOP DIAGNOSIS: Osteomyelitis right foot PLANNED PROCEDURE: Operation Date: 02/03/25 12:45 Proposed Procedures p Incision of Bone Cortex RIGHT Foot(Right) - Saulo Yoder DPM
[2025-02-03] MEDS: ceFAZolin 2,000 mg SDV 2000 MG IVP (12:14)
--- NOTE | 2025-02-03 13:45 | ANE.PACU2 ---
Inpatient post-anesthesia follow up: Airway intact: Yes Vital signs: Temperature 97 F Pulse Rate 71 Respiratory Rate 17 Blood Pressure 144/68 Pulse Oximetry 97 Oxygen Delivery Me thod Room Air Oxygen Flow Rate Fraction of Inspir ed Oxygen Hydration adequate: Yes Nausea and vomiting: No Pain level: 1 Mental status: Baseline
--- NOTE | 2025-02-03 13:49 | P.OP_ITS ---
Operative Report Date of procedure: February 03, 2025 Pre-op diagnosis: Foot ulcer with necrosis of bone, right. ICD 10 code L97.514 Post-op diagnosis: Foot ulcer with necrosis of bone, right. ICD 10 code L97.514 Procedure done: Incision of bone cortex right foot. CPT code 32268 Specimens removed/disposition: Bone right fifth metatarsal sent to microbiology Pathology: None Surgeon: Saulo Yoder DPM [facility] Aides Teacher: Irina Estimated blood loss: 5 See intraoperative documentation IV fluids: See intraoperative documentation Urine output: None Complications: No complications Brief History: Patient examined and evaluated, findings and treatment options discussed with patient at length. On exam patient has a full-thickness wound probes directly to the fifth metatarsal with positive probe to bone test. X-ray 01/18/2025 shows erosive changes of the head and neck of the right fifth metatarsal consistent with osteomyelitis without soft tissue emphysema. Recommended incision to bone cortex right fifth metatarsal and minimum 6-week course of IV antibiotics guided by bone culture. Patient is in agreements. I reviewed at length with the patient, the risks, potential complications, benefits, alternatives, expectations, and typical outcomes associated with the surgery. The risks and potential complications were explained in detail, including but not limited to infection, wound dehiscence or soft tissue complications, bleeding and hematoma, chronic edema, neuritis or nerve damage producing numbness or chronic pain, CRPS, failure to relieve pain or worsening pain, thick / painful / unsightly scar, limited motion / stiffness, malposition, delayed union, malunion, or nonunion, fracture, reaction to implants, anesthetic complications, venous thromboembolism, and deformity recurrence. I discussed the notion of no regrets with the patient as it pertains to complications and outcomes. The patient seemed to understand the nature of the proposed care and required convalescence. They asked appropriate questions, answered to their satisfaction. They are aware no guarantees can be made as to a satisfactory outcome and they understand there may be other possible unforeseen complications or outcomes not listed here that will be treated accordingly if they arise. There were no written or implied guarantees given to the patient. They gave informed consent to proceed. Procedure: Under mild sedation the patient was brought to the operating room and remained on the gurney in supine position. A timeout was performed. Anesthesia was then administered by the anesthesia service. Local esthesia injected by myself consisting of 30 cc of one-to-one mixture 1% lidocaine and 0.5% Marcaine plain in a right reverse Velasquez block fashion. Well-padded pneumatic tourniquet applied to the right ankle. The right lower extremity was scrubbed, prepped and draped utilizing normal aseptic technique. Right foot was elevated and tourniquet inflated to 250 mmHg. Attention was directed to the right lateral forefoot where a full-thickness wound that probe directly to bone subfifth metatarsal head was appreciated. At the dorsal lateral aspect of the right fifth metatarsal phalangeal joint a linear longitudinal incision is made full-thickness down to bone and bone was incised sharply with 15 blade and noted to be of poor density and color especially at the head of the right fifth metatarsal, fifth metatarsal distal aspect was incised in a beveled fashion and the fifth metatarsal was sent to microbiology for Gram stain culture and sensitivity. No further devitalized tissue appreciated. The incision was irrigated with copious amounts of sterile skin solution and Irrisept. This was closed with 2-0 Vicryl and 4-0 nylon. Right plantar forefoot wound was dressed with Xeroform. The incision was dressed with Xeroform, 4 x 4 gauze, Kerlix and Otis wrap followed by application of a cam boot. Tourniquet was deflated and a prompt hyperemic response is noted to the distal digits of the right foot. Patient tolerated the procedure and anesthesia well and was transferred to the PACU with vital signs stable and vascular status intact. Following a period of postoperative monitoring he will be discharged home without home care instructions and scheduled follow-up. Oral antibiotics prescribed and patient will be contacted once cultures yield further information.
== END 2025-02-03 13:46 | disposition home or self-care (01) ==
PROVIDERS: PCP Family Medicine; Visit Provider Podiatrist Foot & Ankle Surgery
PROC: (CPT 28005; principal; 2025-02-03 12:35)
DX: L97.514 Non-pressure chronic ulcer of other part of right foot with necrosis of bone (principal); I25.10 Atherosclerotic heart disease of native coronary artery without angina pectoris; E78.5 Hyperlipidemia, unspecified; E66.01 Morbid (severe) obesity due to excess calories; Z68.32 Body mass index [BMI] 32.0-32.9, adult; E11.65 Type 2 diabetes mellitus with hyperglycemia; Z79.4 Long term (current) use of insulin
CPT/HCPCS: 28005; 36416; 80048; 82962; 87070; 87176; 87205; J0690; J3010; J7030

== ENCOUNTER → 2025-02-08 07:36 | Outpatient (BNVA) | payer MEDICARE, MEDICAID, SELFPAY | PROVIDERS: PCP Family Medicine; Visit Provider Podiatrist Foot & Ankle Surgery | DX: Z98.890 Other specified postprocedural states (principal) | CPT/HCPCS: 99024; 99213 ==

== ENCOUNTER → 2025-02-15 08:41 | Outpatient (BNVA) | payer MEDICARE, MEDICAID, SELFPAY | PROVIDERS: PCP Family Medicine; Visit Provider Internal Medicine | DX: E11.621 Type 2 diabetes mellitus with foot ulcer (principal); L97.519 Non-pressure chronic ulcer of other part of right foot with unspecified severity; E11.65 Type 2 diabetes mellitus with hyperglycemia; Z79.4 Long term (current) use of insulin; E78.2 Mixed hyperlipidemia; E03.8 Other specified hypothyroidism | CPT/HCPCS: 99214 ==

== ENCOUNTER → 2025-02-17 09:51 | Outpatient (BNVA) | payer MEDICARE, MEDICAID, SELFPAY | PROVIDERS: PCP Family Medicine; Visit Provider Podiatrist Foot & Ankle Surgery | DX: Z98.890 Other specified postprocedural states (principal) | CPT/HCPCS: 99024 ==

== ENCOUNTER → 2025-03-08 08:48 | Outpatient (BNVA) | payer MEDICARE, MEDICAID, SELFPAY | PROVIDERS: PCP Family Medicine; Visit Provider Podiatrist Foot & Ankle Surgery | DX: E11.65 Type 2 diabetes mellitus with hyperglycemia (principal); Z79.4 Long term (current) use of insulin; Q66.71 Congenital pes cavus, right foot; Q66.72 Congenital pes cavus, left foot; I10 Essential (primary) hypertension | CPT/HCPCS: 99213 ==

== ENCOUNTER 2025-03-21 06:26 | Outpatient (CLI) | payer MEDICARE, MEDICAID, SELFPAY ==
--- NOTE | 2025-03-21 08:30 | USCV_ITS ---
Matt Michael Age: 70 Gender: M : 1955 Exam Date: 03/21/2025 06:36 Ordering Phys: Glenn Bonner MD ([email or web address]) Technologist: RONAL Exam Location: [facility] Indication: Palpitations BP: 169 / 69 HR: 66 Rhythm: Sinus Technical Quality: suboptimal MEASUREMENTS (Male / Female) Normal Values 2D ECHO LV Diastolic Diameter PLAX 6.2 cm 4.2 - 5.9 / 3.9 - 5.3 cm IVS Diastolic Thickness 2.0 cm 0.6 - 1.0 / 0.6 - 0.9 cm IVS Systolic Thickness 2.1 cm LVPW Diastolic Thickness 1.7 cm 0.6 - 1.0 / 0.6 - 0.9 cm LVPW Systolic Thickness 2.0 cm LVOT Diameter 2.1 cm LV Ejection Fraction 2D Teich 47.2 % LV Ejection Fraction MOD 4C 38.8 % LV Ejection Fraction MOD 2C 41.8 % LV Ejection Fraction 2C AL 41.9 % LA Diameter 4.2 cm RA Systolic Volume 4C AL 46.7 ml RA Systolic Volume 4C MOD 45.5 ml LA Sys Volume AL 88.4 cm cubed LA Sys Volume Index AL 34.7 cm cubed/m squared Aorta at Sinotubular Diameter 2.8 cm M-MODE LA Ao Ratio MM 1.6 AV Cusp Separation MM 1.9 cm DOPPLER AV Peak Velocity 107.0 cm/s LVOT Peak Velocity 65.0 cm/s AV Area Cont Eq vti 2.4 cm squared AV Area Cont Eq pk 2.1 cm squared MV Peak Velocity 94.0 cm/s MV Area PHT 4.7 cm squared Mitral E to A Ratio 0.6 TR Peak Velocity 79.0 cm/s TR Peak Gradient 2.5 mmHg TV Peak E Velocity 75.0 cm/s PV Peak Velocity 85.0 cm/s FINDINGS Left Ventricle Normal left ventricular size, systolic function and wall thickness, with no regional wall motion abnormalities. Left ventricular ejection fraction is estimated at 60 %. Grade I/IV diastolic dysfunction (abnormal relaxation filling pattern), normal to mildly elevated filling pressures. Right Ventricle Normal right ventricular size and systolic function. Right Atrium Normal right atrial size. Left Atrium Moderately increased left atrial size. IA Septum Normal appearance of the interatrial septum. Mitral Valve Normal mitral valve structure. No mitral valve stenosis or regurgitation. Aortic Valve Severe aortic valve calcification. Mild aortic valve stenosis, mean gradient 2.4 mmHg, DIONI 2.4 cm squared. No aortic valve regurgitation. Tricuspid Valve Normal tricuspid valve structure. No tricuspid valve stenosis or regurgitation. Normal pulmonary pressure. Pulmonic Valve Normal pulmonic valve structure. No pulmonic valve stenosis or regurgitation. Pericardium No pericardial effusion. Aorta Normal diameter of the aortic root and ascending thoracic aorta. IVC Normal IVC diameter. CONCLUSIONS Normal left ventricular size, systolic function and wall thickness, with no regional wall motion abnormalities. Left ventricular ejection fraction is estimated at 60 %. Grade I/IV diastolic dysfunction (abnormal relaxation filling pattern), normal to mildly elevated filling pressures. Severe aortic valve calcification. Mild aortic valve stenosis, mean gradient 2.4 mmHg, DIONI 2.4 cm squared. No aortic valve regurgitation. There is no pericardial effusion. Right atrial pressure is around 5 mm of mercury. Glenn Bonner MD (Electronically Signed) Final Date: 23 March 2025 20:59 S
== END 2025-03-21 06:27 | disposition home or self-care (01) ==
LOC: RAD 06:27
PROVIDERS: PCP Family Medicine; Visit Provider Internal Medicine Cardiovascular Disease
DX: R00.2 Palpitations (principal); I49.9 Cardiac arrhythmia, unspecified; R07.9 Chest pain, unspecified; I51.89 Other ill-defined heart diseases; I51.7 Cardiomegaly; I35.8 Other nonrheumatic aortic valve disorders; I35.0 Nonrheumatic aortic (valve) stenosis
CPT/HCPCS: 93306

== ENCOUNTER → 2025-04-11 08:15 | Outpatient (BNVA) | payer MEDICARE, MEDICAID, SELFPAY | PROVIDERS: PCP Family Medicine; Visit Provider Family Medicine | DX: Z00.00 Encounter for general adult medical examination without abnormal findings (principal); Z12.5 Encounter for screening for malignant neoplasm of prostate; G91.9 Hydrocephalus, unspecified; Z11.59 Encounter for screening for other viral diseases | CPT/HCPCS: G0103 ==

== ENCOUNTER → 2025-05-30 07:14 | Outpatient (BNVA) | payer MEDICARE, MEDICAID, SELFPAY | PROVIDERS: PCP Family Medicine; Visit Provider Podiatrist Foot & Ankle Surgery | DX: L60.0 Ingrowing nail (principal); E11.65 Type 2 diabetes mellitus with hyperglycemia; Z79.4 Long term (current) use of insulin; Q66.71 Congenital pes cavus, right foot; Q66.72 Congenital pes cavus, left foot; L97.512 Non-pressure chronic ulcer of other part of right foot with fat layer exposed; L03.115 Cellulitis of right lower limb; Z79.85 Long-term (current) use of injectable non-insulin antidiabetic drugs | CPT/HCPCS: 99214 ==